=== PATIENT | male | born 1975 | race African-American/Black ===

== ENCOUNTER 2016-07-16 14:58 | Emergency (ER) | payer OTHER ==
[2016-07-16 15:19] VITALS: BP 112/71; PULSE 67; TEMP 100; BMI 32.3
--- NOTE | 2016-07-16 15:46 | PDOC ---
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, worries about influenza Timing/Duration: reports: changing over time, getting worse, gone now Severity: reports: mild, moderate Associated Symptoms: reports: chest pain/soreness, cough, fever/chills, lightheadedness Past History - Travel Traveled outside of the country in the last 30 days: No Close contact w/someone who was outside of country & ill: No - Past Medical History Allergies/Adverse Reactions: Allergies Allergy/AdvReac Type Severity Reaction Status Date / Time No Known Allergies Allergy Verified 07/16/16 15:13 Home Medications: Ambulatory Orders Omeprazole 20 mg PO ASDIR 07/16/16 Oseltamivir Phosphate [Tamiflu -] 75 mg PO BID #10 capsule 07/16/16 GI Disorders: Yes (gastritis) - Immunization History Immunization Up to Date: Yes (no flu ) - Psycho/Social/Smoking Cessation Hx Anxiety: No Suicidal Ideation: No Smoking History: Former smoker Have you smoked in the past 12 months: No Information on smoking cessation initiated: No Hx Alcohol Use: No Drug/Substance Use Hx: No Substance Use Type: None Respiratory Specific PMHX - Complaint Specific PMHX Bronchitis: No Pneumonia: No Review of Systems - Review of Systems Able to Perform ROS?: Yes Is the patient limited Urdu proficient: Yes Constitutional: Yes: Symptoms Reported, See HPI, Chills, Fever, Loss of Appetite , Malaise HEENTM: Yes: Symptoms Reported, See HPI, Nose Congestion, Throat Swelling Respiratory: Yes: Symptoms reported, See HPI, Cough Musculoskeletal: Yes: Symptoms Reported, Muscle Pain Neurological: Yes: Symptoms reported, See HPI, Headache *Physical Exam - Vital Signs Last Vital Signs Temp Pulse Resp BP Pulse Ox 100 F H 67 20 112/71 97 07/16/16 15:13 07/16/16 15:13 07/16/16 15:13 07/16/16 15:13 07/16/16 15:13 - Physical Exam General Appearance: Yes: Nourished, Appropriately Dressed, Apparent Distress, Mild Distress HEENT: positive: KASSANDRA, TMs Normal, Pharyngeal Erythema (no exudate or swelling) , Nasal Congestion, Rhinorrhea, Sinus Tenderness. negative: Pharynx Normal Neck: positive: Supple, Lymphadenopathy (R), Lymphadenopathy (L). negative: Tender Respiratory/Chest: positive: Lungs Clear (but coarse, no wheezing or retractions ), Normal Breath Sounds Gastrointestinal/Abdominal: positive: Normal Bowel Sounds, Soft. 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 Will treat with Tamiflu *DC/Admit/Observation/Transfer Diagnosis at time of Disposition: Influenzal acute upper respiratory infection - Discharge Dispostion Disposition: HOME Condition at time of disposition: Stable Admit: No - Patient Instructions Printed Discharge Instructions: DI for Viral Upper Respiratory Infection -- Adult Additional Instructions: Rest, drink lots of fluids: Teas, water, soups, Pedialyte Saltwater gargles Steamy showers/seem to face break up mucus Old-fashioned treatments help! Avoid contact with others until fevers and cough resolved as this is very contagious Lots of handwashing and good hygiene Continue [id number] medications for symptomatic relief Tylenol or Motrin for fever and pain Take all of Tamiflu as directed: 1 tab every 12 hours for 5 days Followup with private physician in one to 2 days as needed or if worsening Return to emergency department for worsened symptoms, fevers, dehydration Influenza takes between 5 and 7 days for resolution To not participate in any activity, work, or school until fevers and cough are gone for at least one day - Post Discharge Activity Work/School Note: Back to Work
== END 2016-07-16 15:51 | disposition home or self-care (01) ==
LOC: JER 14:58 → JERFT 14:58
DX: J11.1 Influenza due to unidentified influenza virus with other respiratory manifestations (principal)
CPT/HCPCS: 99281-25

== ENCOUNTER 2017-02-26 16:34 | Observation (INO) | payer OTHER ==
[2017-02-26] MEDS ORDERED: ONDANSETRON *ODT* 4 MG TABLET SL ONE (16:57)
--- NOTE | 2017-02-26 16:59 | PDOC ---
Rapid Medical Evaluation Time Seen by Provider: 02/26/17 16:54 Medical Evaluation: Allergies Allergy/AdvReac Type Severity Reaction Status Date / Time No Known Allergies Allergy Verified 07/16/16 15:13 02/26/17 16:54 I have performed a brief in person evaluation of this patient. The patient presents with chief complaint of : abd pain started today with vomiting and diarrhea in triage. no sick contacts at home. Pertinent PE findings: vomiting in triage, I have ordered the following: labs, zofran ODT The patient will proceed to the ER for further evaluation. 02/26/17 16:58
[2017-02-26 17:00] VITALS: BP 151/91; PULSE 56; TEMP 98.7; BMI 32.3
[2017-02-26] MEDS ORDERED: ONDANSETRON 4 MG/2 ML VIAL ONE ×2 (17:59→21:08)
[2017-02-26 18:11] LABS: BASO % 0.8 % (0-2.0); EOS % 2.2 % (0-4.5); HEMOGLOBIN 13.3 GM/dL (11.7-16.9); LYMPH % 30.4 % (8-40); MCH 28.6 pg (25.7-33.7); MCHC 33.1 g/dl (32.0-35.9); MEAN CELL VOLUME 86.4 fl (80-96); MEAN PLT VOLUME 7.7 fl (7.5-11.1); MONO % 4.3 % (3.8-10.2); NEUT % 62.3 % (42.8-82.8); PLATELET COUNT 329 K/MM3 (134-434); RBC 4.63 M/mm3 (4.00-5.60); WHITE BLOOD COUNT 12.4 K/mm3 (4.0-10.0)
[2017-02-26 18:51] LABS: ALK PHOS 59 U/L (45-117); AMYLASE 55 U/L (25-115); ANION GAP 9 (8-16); BILIRUBIN,TOTAL 0.3 mg/dL (0.2-1.0); BLOOD UREA NITROGEN 13 mg/dL (7-18); CHLORIDE 106 mmol/L (98-107); CO2 28 mmol/L (21-32); CREATININE 1.2 mg/dL (0.7-1.3); GLUCOSE,RANDOM 110 mg/dL (74-106); LIPASE 101 U/L (73-393); POTASSIUM 3.7 mmol/L (3.5-5.1); SGOT/AST 30 U/L (15-37); SGPT/ALT 50 U/L (12-78); SODIUM 143 mmol/L (136-145); TOT PROT 8.3 g/dl (6.4-8.2)
--- NOTE | 2017-02-26 19:26 | PDOC ---
History of Present Illness - General Chief Complaint: Pain, Acute Stated Complaint: STOMACH PAIN Time Seen by Provider: 02/26/17 16:54 History Source: Patient Exam Limitations: No Limitations - History of Present Illness Travel History: No Initial Comments: 02/26/17 19:22 Patient is a 42 yo M with no significant PMHx presented today with 6/10, diffuse , intermittent, nonradiating, cramping abdominal pain that started this morning. Patient said he went to a restaurant last night and had rice and beans. He also endorses nausea, vomiting, and non-bloody watery diarrhea. He has been vomiting all day and had more than 5 bowel movements. Nothing alleviates the pain and movement aggravates it. Patient denies recent travel and no sick contacts. He experienced similar events 3 times this year. Patient denies chest pain, headache, sob, and dizziness. Past History - Travel Traveled outside of the country in the last 30 days: No Close contact w/someone who was outside of country & ill: No - Past Medical History Allergies/Adverse Reactions: Allergies Allergy/AdvReac Type Severity Reaction Status Date / Time No Known Allergies Allergy Verified 02/26/17 16:55 Home Medications: Ambulatory Orders Omeprazole 20 mg PO ASDIR 07/16/16 COPD: No GI Disorders: Yes (gastritis) - Immunization History Immunization Up to Date: Yes (no flu ) - Suicide/Smoking/Psychosocial Hx Smoking History: Current every day smoker Have you smoked in the past 12 months: No Number of Cigarettes Smoked Daily: 2 Information on smoking cessation initiated: No Hx Alcohol Use: No Drug/Substance Use Hx: Yes (Marijuana) Substance Use Type: Marijuana Review of Systems - Review of Systems Able to Perform ROS?: Yes Is the patient limited Peruvian proficient: No Constitutional: Yes: Diaphoresis, Fever HEENTM: No: Nose Congestion, Throat Pain Respiratory: No: Cough, Shortness of Breath, Wheezing Cardiac (ROS): No: Chest Pain, Edema, Irregular Heart Rate ABD/GI: Yes: Diarrhea, Nausea, Poor Fluid Intake, Vomiting : No: Dysuria Neurological: No: Headache *Physical Exam - Vital Signs Last Vital Signs Temp Pulse Resp BP Pulse Ox 98.7 F 56 L 16 151/91 100 02/26/17 16:55 02/26/17 16:55 02/26/17 16:55 02/26/17 16:55 02/26/17 16:55 - Physical Exam Comments: 02/26/17 20:21 General: Patient in mild distress, A/o x3 HEENT: anicteric, orophyranx clear, no exudates Neck: supple CV: RRR, no Murmurs appreciated Lung: CTA b/l, no rales rhonchi or wheezing Abd: Soft, ND, normoactive bowel sounds, tenderness to palpation in all quadrants, greater on LUQ. -lawton's, no guarding, no hepatomegaly Ext: no peripheral edema. ED Treatment Course - LABORATORY CBC & Chemistry Diagram: 02/26/17 17:46 02/26/17 17:46 - ADDITIONAL ORDERS Additional order review: Laboratory Results 02/26/17 02/26/17 18:32 17:46 Sodium 143 Potassium 3.7 Chloride 106 Carbon Dioxide 28 Anion Gap 9 BUN 13 Creatinine 1.2 Creat Clearance w eGFR > 60 POC Glucometer 128.96331 Random Glucose 110 H Calcium 9.0 Total Bilirubin 0.3 AST 30 ALT 50 Alkaline Phosphatase 59 Total Protein 8.3 H Albumin 4.0 Total Amylase 55 Lipase 101 02/26/17 02/26/17 18:32 17:46 RBC 4.63 MCV 86.4 MCHC 33.1 RDW 14.0 MPV 7.7 Neutrophils % 62.3 Lymphocytes % 30.4 Monocytes % 4.3 Eosinophils % 2.2 Basophils % 0.8 POC Glucometer 128.93120 - Medications Given in the ED: ED Medications Discontinued Medications Generic Name Dose Route Start Last Admin Trade Name Freq PRN Reason Stop Dose Admin Ondansetron HCl 4 mg 02/26/17 16:57 02/26/17 18:10 Zofran Odt - SL 02/26/17 16:58 Not Given ONCE ONE Medical Decision Making - Medical Decision Making 02/26/17 20:24 #Abdominal pain #Nausea #Vomiting Likely Food poisoning/Gastroenteritis -1 L bolus NS -Zofran for nausea -CBC, CMP -Ofirmev 1000 for pain control -Will continue monitoring. 02/26/17 21:00 Patient still actively vomiting. Says abdominal pain is improving. Zofran ordered. 02/27/17 00:31 Patient still in distress. Abdominal pain has not improved. Still retching. Lactic acid 2.[address] ordered to rule out ischemia. Zofran Morphine 2mg for pain control 02/27/17 02:42 Abdominal pain is improving. Will continue monitoring. 02/27/17 04:54 Patient feels much better now. Pain subsided. Patient ready for discharge. Will need to follow up with a GI doctor in 1 week. 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 Take your medications as directed. If you feel your symptoms are worsening, call your doctor or go to your nearest emergency department. - Post Discharge Activity Forms/Work/School Notes: Back to Work
[2017-02-26] MEDS ORDERED: ACETAMINOPHEN 1000 MG/100 ML VIAL (NON FORMULARY) IVPB ONE (19:32)
[2017-02-26] MEDS ORDERED: SODIUM CHLORIDE 1,000 ML IV STA (19:32)
--- NOTE | 2017-02-26 19:32 | PDOC ---
Attending Attestation - Resident Resident Name: Foster Razo - ED Attending Attestation I have performed the following: I have examined & evaluated the patient, The case was reviewed & discussed with the resident, I agree w/resident's findings & plan, Exceptions are as noted - HPI HPI: 02/26/17 19:25 NVD and ABDOMINAL PAIN COPIOUS DIARRHEA - Physicial Exam PE: 02/26/17 19:32 VSS NAD ABDOMEN SOFT/BENIGN - Medical Decision Making 02/26/17 19:[address] RAZO ASSESSMENT AND PLAN Discharge Disposition - Diagnosis Gastroenteritis, Intractable vomiting - Discharge Dispostion Condition at time of disposition: Unchanged/Unknown Admit: Yes
[2017-02-26] MEDS ORDERED: ACETAMINOPHEN INJECTION 100 ML IVPB ONE (19:36)
[2017-02-26] MEDS ORDERED: ONDANSETRON 4 MG/2 ML VIAL IVPUSH ONE (21:01)
[2017-02-27] MEDS ORDERED: SODIUM CHLORIDE 1,000 ML IV STA (00:25)
[2017-02-27] MEDS ORDERED: SODIUM CHLORIDE 1,000 ML IV SCH (00:30)
[2017-02-27] MEDS ORDERED: ONDANSETRON 4 MG/2 ML VIAL IVPUSH ONE (00:30)
[2017-02-27] MEDS ORDERED: morphine CARPU-JECT 8 MG/1 ML DISP.SYRIN IVPUSH ONE (00:33)
[2017-02-27] MEDS ORDERED: morphine SULFATE 4 MG/ML VIAL ONE (00:42)
[2017-02-27] MEDS ORDERED: ONDANSETRON 4 MG/2 ML VIAL ONE (00:42)
== END 2017-02-27 05:29 | disposition home or self-care (01) ==
LOC: JER 16:34 → JERBED 22:42 → JER 02-27 05:29
PROVIDERS: ADMIT Internal Medicine; ATTEND Internal Medicine
PROC: 3E033GC Introduction of Other Therapeutic Substance into Peripheral Vein, Percutaneous Approach (ICD-10-PCS; principal; 2017-02-26)
PROC: 3E033NZ Introduction of Analgesics, Hypnotics, Sedatives into Peripheral Vein, Percutaneous Approach (ICD-10-PCS; 2017-02-26)
DX: K52.9 Noninfective gastroenteritis and colitis, unspecified (principal)
CPT/HCPCS: 36415; 74177-TC; 80053; 82150; 83605; 83690; 83735; 85025; 96374; 96375; 99283-25; G0378

== ENCOUNTER 2017-04-09 15:44 | Observation (INO) | payer OTHER ==
[2017-04-09 15:49] VITALS: BMI 32.3
--- NOTE | 2017-04-09 15:51 | PDOC ---
Rapid Medical Evaluation Chief Complaint: Pain Time Seen by Provider: 04/09/17 15:47 Medical Evaluation: Allergies Allergy/AdvReac Type Severity Reaction Status Date / Time No Known Allergies Allergy Verified 02/26/17 16:55 04/09/17 15:47 I have performed a brief in-person evaluation of this patient. This patient presents with a chief complaint of: abdominal pain and vomiting since 230pm. States vomiting started after eating chicken at work, pain constant with nausea and vomiting Pertinent physical exam findings: NAD unlabored breathing obese abdomen, +right upper quadrant tenderness I have ordered the following: labs, antiemetic This patient will proceed to the ED for further evaluation
[2017-04-09] MEDS ORDERED: ONDANSETRON 4 MG/2 ML VIAL IVPB ONE ×2 (15:52→16:49)
[2017-04-09 16:12] LABS: BASO % 0.7 % (0-2.0); EOS % 4.1 % (0-4.5); MCH 29.1 pg (25.7-33.7); MCHC 33.1 g/dl (32.0-35.9); MEAN CELL VOLUME 87.8 fl (80-96); MEAN PLT VOLUME 7.6 fl (7.5-11.1); NEUT % 38.5 % (42.8-82.8); PLATELET COUNT 321 K/MM3 (134-434); RDW 14.1 % (11.9-15.9); WHITE BLOOD COUNT 5.9 K/mm3 (4.0-10.0)
[2017-04-09 16:33] LABS: ALBUMIN 3.9 g/dl (3.4-5.0); ANION GAP 7 (8-16); BILIRUBIN,TOTAL 0.2 mg/dL (0.2-1.0); CALCIUM 8.9 mg/dL (8.5-10.1); CO2 29 mmol/L (21-32); CREATININE 1.3 mg/dL (0.7-1.3); GLUCOSE,RANDOM 94 mg/dL (74-106); SGOT/AST 14 U/L (15-37); SGPT/ALT 27 U/L (12-78)
[2017-04-09 16:34] LABS: ALK PHOS 57 U/L (45-117); TOT PROT 7.9 g/dl (6.4-8.2)
[2017-04-09] MEDS ORDERED: ONDANSETRON 4 MG/2 ML VIAL ONE (16:47)
[2017-04-09] MEDS ORDERED: MAG HYDROX/AL HYDROX/SIMETH 30 ML UNIT-DOSE CUP PO ONE (16:48)
[2017-04-09] MEDS ORDERED: KETOROLAC TROMETHAMINE 30 MG/1 ML VIAL IVPUSH ONE (16:48)
[2017-04-09] MEDS ORDERED: SODIUM CHLORIDE 1,000 ML IV STA (16:48)
[2017-04-09] MEDS ORDERED: PANTOPRAZOLE SODIUM 40 MG VIAL IVPUSH ONE (16:58)
[2017-04-09] MEDS ORDERED: KETOROLAC TROMETHAMINE 30 MG/1 ML VIAL ONE (17:03)
[2017-04-09] MEDS ORDERED: PANTOPRAZOLE SODIUM 40 MG/100 ML BAG IVPB ONE (17:03)
[2017-04-09] MEDS ORDERED: FAMOTIDINE IV 20 MG/12 ML VIAL IVPUSH ONE (17:03)
--- NOTE | 2017-04-09 17:03 | PDOC ---
History of Present Illness - History of Present Illness Initial Comments: 04/09/17 17:11 The patient is a 42 year old male, with no significant past medical history, who presents to the emergency department with vomiting and left-sided abdominal pain since 2:30 pm today. Patient admits to several episodes of nausea, vomiting , and diarrhea. He also reports subjective fever, chills and decreased appetite. He denies any recent headache or dizziness. He denies any recent constipation. He denies any recent chest pain or shortness of breath. He denies any recent dysuria, frequency, urgency or hematuria. PCP: Richy Cline <Laura Roblero - Last Filed: 04/09/17 17:11> - General History Source: Patient Exam Limitations: No Limitations <Burt Johnson - Last Filed: 04/14/17 08:08> - General Chief Complaint: Pain Stated Complaint: ABD PAIN, N/V/D Time Seen by Provider: 04/09/17 15:47 Past History <Laura Roblero - Last Filed: 04/09/17 17:11> - Past Medical History COPD: No GI Disorders: Yes (gastritis) - Immunization History Immunization Up to Date: Yes (no flu ) - Suicide/Smoking/Psychosocial Hx Smoking History: Never smoked Have you smoked in the past 12 months: No Number of Cigarettes Smoked Daily: 2 Information on smoking cessation initiated: Yes 'Breaking Loose' booklet given: 04/09/17 Hx Alcohol Use: No Drug/Substance Use Hx: No Substance Use Type: Marijuana <Burt Johnson - Last Filed: 04/14/17 08:08> - Past Medical History Allergies/Adverse Reactions: Allergies Allergy/AdvReac Type Severity Reaction Status Date / Time No Known Allergies Allergy Verified 04/10/17 21:31 Home Medications: Ambulatory Orders Omeprazole 20 mg PO ASDIR 07/16/16 Dicyclomine HCl [Bentyl -] 10 mg PO Q6H #28 capsule 02/27/17 Ondansetron HCl [Zofran] 4 mg PO TID #18 tablet 02/27/17 Ondansetron [Zofran Odt -] 4 mg SL TID #21 od.tablet 04/09/17 Ondansetron [Zofran Odt -] 4 mg SL TID #21 od.tablet 04/09/17 Phenobarb/Hyoscy/Atropine/Scop [ Tablet] 16.2 mg PO TID 3 Days #9 tablet 04/09/17 Phenobarb/Hyoscy/Atropine/Scop [ Tablet] 16.2 mg PO TID 3 Days #9 tablet 04/09/17 Metoclopramide HCl [Reglan -] 10 mg PO TID #30 tablet 04/12/17 Review of Systems - Review of Systems Comments:: 04/09/17 17:12 GENERAL/CONSTITUTIONAL: +fever, +chills. No weakness. HEAD, EYES, EARS, NOSE AND THROAT: No change in vision. No ear pain or discharge. No sore throat. CARDIOVASCULAR: No chest pain or shortness of breath. RESPIRATORY: No cough, wheezing, or hemoptysis. GASTROINTESTINAL: +nausea, +vomiting, +diarrhea. No constipation. GENITOURINARY: No dysuria, frequency, or change in urination. MUSCULOSKELETAL: No joint or muscle swelling or pain. No neck or back pain. SKIN: No rash NEUROLOGIC: No headache, vertigo, loss of consciousness, or change in strength/ sensation. ENDOCRINE: +decreased appetite. No increased thirst. No abnormal weight change. HEMATOLOGIC/LYMPHATIC: No anemia, easy bleeding, or history of blood clots. ALLERGIC/IMMUNOLOGIC: No hives or skin allergy. 04/09/17 17:12 <Laura Roblero - Last Filed: 04/09/17 17:11> *Physical Exam - Vital Signs Last Vital Signs Temp Pulse Resp BP Pulse Ox 98.9 F 60 19 148/93 99 04/09/17 15:47 04/09/17 15:47 04/09/17 15:47 04/09/17 15:47 04/09/17 15:47 - Physical Exam Comments: 04/09/17 17:14 GENERAL: Awake, alert, and fully oriented, in no acute distress HEAD: No signs of trauma EYES: PERRLA, EOMI, sclera anicteric, conjunctiva clear ENT: Auricles normal inspection, hearing grossly normal, nares patent, oropharynx clear without exudates. Dry mucous membranes NECK: Normal ROM, supple, no lymphadenopathy, JVD, or masses LUNGS: Breath sounds equal, clear to auscultation bilaterally. No wheezes, and no crackles HEART: Regular rate and rhythm, normal S1 and S2, no murmurs, rubs or gallops ABDOMEN: Uncomfortable feeling, LUQ, LLQ; tenderness to palpation. Soft, normoactive bowel sounds. No guarding, no rebound. No masses EXTREMITIES: Normal range of motion, no edema. No clubbing or cyanosis. No cords, erythema, or tenderness NEUROLOGICAL: Cranial nerves II through XII grossly intact. Normal speech, normal gait SKIN: Warm, Dry, normal turgor, no rashes or lesions noted. <Laura Roblero - Last Filed: 04/09/17 17:11> - Vital Signs Last Vital Signs Temp Pulse Resp BP Pulse Ox 98.9 F 60 19 148/93 99 04/09/17 15:47 04/09/17 15:47 04/09/17 15:47 04/09/17 15:47 04/09/17 15:47 <uBrt Johnson - Last Filed: 04/14/17 08:08> ED Treatment Course - LABORATORY CBC & Chemistry Diagram: 04/09/17 16:05 04/09/17 16:05 - ADDITIONAL ORDERS Additional order review: Laboratory Results 04/09/17 16:05 Sodium 141 Potassium 3.8 Chloride 105 Carbon Dioxide 29 Anion Gap 7 L BUN 13 Creatinine 1.3 Creat Clearance w eGFR > 60 Random Glucose 94 Calcium 8.9 Total Bilirubin 0.2 D AST 14 L D ALT 27 D Alkaline Phosphatase 57 Total Protein 7.9 Albumin 3.9 Lipase 103 04/09/17 16:05 RBC 4.68 MCV 87.8 MCHC 33.1 RDW 14.1 MPV 7.6 Neutrophils % 38.5 L D Lymphocytes % 49.8 H D Monocytes % 6.9 Eosinophils % 4.1 D Basophils % 0.7 - Medications Given in the ED: ED Medications Discontinued Medications Generic Name Dose Route Start Last Admin Trade Name Freq PRN Reason Stop Dose Admin Al Hydroxide/Mg Hydroxide 30 ml 04/09/17 16:48 04/09/17 16:54 Mylanta Oral Suspension - PO 04/09/17 16:49 30 ml ONCE ONE Administration Ketorolac Tromethamine 30 mg 04/09/17 16:48 04/09/17 16:54 Toradol Injection - IVPUSH 04/09/17 16:49 30 mg ONCE ONE Administration Ondansetron HCl 8 mg 04/09/17 15:52 04/09/17 16:55 Zofran Injection IVPB 04/09/17 15:53 8 mg ONCE ONE Administration Ondansetron HCl 4 mg 04/09/17 16:49 04/09/17 16:54 Zofran Injection IVPB 04/09/17 16:50 4 mg ONCE ONE Administration <Laura Roblero - Last Filed: 04/09/17 17:11> - LABORATORY CBC & Chemistry Diagram: 04/10/17 07:34 04/10/17 07:34 - ADDITIONAL ORDERS Additional order review: Laboratory Results 04/09/17 16:05 Sodium 141 Potassium 3.8 Chloride 105 Carbon Dioxide 29 Anion Gap 7 L BUN 13 Creatinine 1.3 Creat Clearance w eGFR > 60 Random Glucose 94 Calcium 8.9 Total Bilirubin 0.2 D AST 14 L D ALT 27 D Alkaline Phosphatase 57 Total Protein 7.9 Albumin 3.9 Lipase 103 04/09/17 16:05 RBC 4.68 MCV 87.8 MCHC 33.1 RDW 14.1 MPV 7.6 Neutrophils % 38.5 L D Lymphocytes % 49.8 H D Monocytes % 6.9 Eosinophils % 4.1 D Basophils % 0.7 - RADIOLOGY Radiology Studies Ordered: Category Date Time Status ABDOMEN & PELVIS CT WITH CONTR [CT] Stat CT Scan 04/09/17 16:57 Ordered ABDOMEN US -LIMITED [US] Stat Ultrasound 04/09/17 16:59 Ordered - Medications Given in the ED: ED Medications Discontinued Medications Generic Name Dose Route Start Last Admin Trade Name Freq PRN Reason Stop Dose Admin Al Hydroxide/Mg Hydroxide 30 ml 04/09/17 16:48 04/09/17 16:54 Mylanta Oral Suspension - PO 04/09/17 16:49 30 ml ONCE ONE Administration Ketorolac Tromethamine 30 mg 04/09/17 16:48 04/09/17 16:54 Toradol Injection - IVPUSH 04/09/17 16:49 30 mg ONCE ONE Administration Ondansetron HCl 8 mg 04/09/17 15:52 04/09/17 16:55 Zofran Injection IVPB 04/09/17 15:53 8 mg ONCE ONE Administration Ondansetron HCl 4 mg 04/09/17 16:49 04/09/17 16:54 Zofran Injection IVPB 04/09/17 16:50 4 mg ONCE ONE Administration <ElizabethBurt - Last Filed: 04/14/17 08:08> Medical Decision Making - Medical Decision Making 04/09/17 17:00 A portion of this note was documented by scribe services under my direction. I have reviewed the details of the note, within reason, and agree with the documentation with the following case summary and management plan written by me. Patient treated in the ED. Nursing notes are reviewed and incorporated into the medical decision-making. Vital signs reviewed. Peripheral IV access obtained by the nurse, laboratory studies are drawn and sent, reviewed and interpreted by myself. Vital Signs Temp Pulse Resp BP Pulse Ox 98.9 F 60 19 148/93 99 04/09/17 15:47 04/09/17 15:47 04/09/17 15:47 04/09/17 15:47 04/09/17 15:47 42-year-old male with no past medical history presents with left upper, left lower quadrant abdominal pain with several episodes of nausea, vomiting, diarrhea. Reports tactile fevers and chills and decreased by mouth appetite. Patient does have left-sided abdominal pain. Differential includes gastritis, gastroenteritis, colitis, diverticulitis. We'll obtain labs, CAT scan, urinalysis. Treat symptoms and reassess. 04/09/17 18:53 CBC, BMP 04/09/17 16:05 04/09/17 16:05 CMP Sodium 141 mmol/L (136-145) 04/09/17 16:05 Potassium 3.8 mmol/L (3.5-5.1) 04/09/17 16:05 Chloride 105 mmol/L (98-107) 04/09/17 16:05 Carbon Dioxide 29 mmol/L (21-32) 04/09/17 16:05 Anion Gap 7 (8-16) L 04/09/17 16:05 BUN 13 mg/dL (7-18) 04/09/17 16:05 Creatinine 1.3 mg/dL (0.7-1.3) 04/09/17 16:05 Creat Clearance w eGFR > 60 (>60) 04/09/17 16:05 Random Glucose 94 mg/dL (74-106) 04/09/17 16:05 Calcium 8.9 mg/dL (8.5-10.1) 04/09/17 16:05 Total Bilirubin 0.2 mg/dL (0.2-1.0) D 04/09/17 16:05 AST 14 U/L (15-37) L D 04/09/17 16:05 ALT 27 U/L (12-78) D 04/09/17 16:05 Alkaline Phosphatase 57 U/L (45-117) 04/09/17 16:05 Total Protein 7.9 g/dl (6.4-8.2) 04/09/17 16:05 Albumin 3.9 g/dl (3.4-5.0) 04/09/17 16:05 Lipase 103 U/L (73-393) 04/09/17 16:05 Case signed out to oncoming ED attending Dr. Jarrell for further management and disposition. <Burt Johnson - Last Filed: 04/14/17 08:08> *DC/Admit/Observation/Transfer - Attestations Scribe Attestion: 04/09/17 17:16 Documentation prepared by Laura Roblero, acting as medical office rep for Burt Johnson MD. <Laura Roblero - Last Filed: 04/09/17 17:11> <Burt Johnson - Last Filed: 04/14/17 08:08> Diagnosis at time of Disposition: Nausea & vomiting - Discharge Dispostion Disposition: HOME Condition at time of disposition: Stable
[2017-04-09] MEDS ORDERED: FAMOTIDINE 20 MG/50 ML IVPB 20 MG/50 ML MG IVPB ONE (17:04)
[2017-04-09] MEDS ORDERED: METOCLOPRAMIDE HCL INJECTION 10 MG/2 ML VIAL IVPUSH ONE (17:22)
--- NOTE | 2017-04-09 19:27 | PDOC ---
*Physical Exam - Vital Signs Last Vital Signs Temp Pulse Resp BP Pulse Ox 98.9 F 60 19 148/93 99 04/09/17 15:47 04/09/17 15:47 04/09/17 15:47 04/09/17 15:47 04/09/17 15:47 <Jose Chase - Last Filed: 04/09/17 20:30> - Vital Signs Last Vital Signs Temp Pulse Resp BP Pulse Ox 98.9 F 60 19 148/93 99 04/09/17 15:47 04/09/17 15:47 04/09/17 15:47 04/09/17 15:47 04/09/17 15:47 - Physical Exam Gastrointestinal/Abdominal: positive: Normal Bowel Sounds. negative: Guarding, Rebound, Tenderness <Oleg Jarrell - Last Filed: 04/10/17 01:12> ED Treatment Course - LABORATORY CBC & Chemistry Diagram: 04/09/17 16:05 04/09/17 16:05 - ADDITIONAL ORDERS Additional order review: Laboratory Results 04/09/17 16:05 Sodium 141 Potassium 3.8 Chloride 105 Carbon Dioxide 29 Anion Gap 7 L BUN 13 Creatinine 1.3 Creat Clearance w eGFR > 60 Random Glucose 94 Calcium 8.9 Total Bilirubin 0.2 D AST 14 L D ALT 27 D Alkaline Phosphatase 57 Total Protein 7.9 Albumin 3.9 Lipase 103 04/09/17 16:05 RBC 4.68 MCV 87.8 MCHC 33.1 RDW 14.1 MPV 7.6 Neutrophils % 38.5 L D Lymphocytes % 49.8 H D Monocytes % 6.9 Eosinophils % 4.1 D Basophils % 0.7 - Medications Given in the ED: ED Medications Discontinued Medications Generic Name Dose Route Start Last Admin Trade Name Freq PRN Reason Stop Dose Admin Al Hydroxide/Mg Hydroxide 30 ml 04/09/17 16:48 04/09/17 16:54 Mylanta Oral Suspension - PO 04/09/17 16:49 30 ml ONCE ONE Administration Sodium Chloride 1,000 mls @ 1,000 mls/hr 04/09/17 16:48 04/09/17 16:54 Normal Saline - IV 04/09/17 17:47 1,000 mls/hr ASDIR STA Administration Famotidine 20 mg in 12 mls @ 144 mls/hr 04/09/17 17:03 04/09/17 17:24 Pepcid 20 Mg/12 Ml Push IVPUSH 04/09/17 17:07 144 mls/hr ONCE ONE Administration Ketorolac Tromethamine 30 mg 04/09/17 16:48 04/09/17 16:54 Toradol Injection - IVPUSH 04/09/17 16:49 30 mg ONCE ONE Administration Metoclopramide HCl 10 mg 04/09/17 17:22 04/09/17 19:07 Reglan Injection - IVPUSH 04/09/17 17:23 Not Given ONCE ONE Ondansetron HCl 8 mg 04/09/17 15:52 04/09/17 16:55 Zofran Injection IVPB 04/09/17 15:53 8 mg ONCE ONE Administration Ondansetron HCl 4 mg 04/09/17 16:49 04/09/17 16:54 Zofran Injection IVPB 04/09/17 16:50 4 mg ONCE ONE Administration Pantoprazole Sodium 40 mg 04/09/17 16:58 04/09/17 17:24 Protonix Iv IVPUSH 04/09/17 16:59 40 mg ONCE ONE Administration <Jose Chase - Last Filed: 04/09/17 20:30> - LABORATORY CBC & Chemistry Diagram: 04/09/17 16:05 04/09/17 16:05 - ADDITIONAL ORDERS Additional order review: Laboratory Results 04/09/17 16:05 Sodium 141 Potassium 3.8 Chloride 105 Carbon Dioxide 29 Anion Gap 7 L BUN 13 Creatinine 1.3 Creat Clearance w eGFR > 60 Random Glucose 94 Calcium 8.9 Total Bilirubin 0.2 D AST 14 L D ALT 27 D Alkaline Phosphatase 57 Total Protein 7.9 Albumin 3.9 Lipase 103 04/09/17 16:05 RBC 4.68 MCV 87.8 MCHC 33.1 RDW 14.1 MPV 7.6 Neutrophils % 38.5 L D Lymphocytes % 49.8 H D Monocytes % 6.9 Eosinophils % 4.1 D Basophils % 0.7 - Medications Given in the ED: ED Medications Discontinued Medications Generic Name Dose Route Start Last Admin Trade Name Freq PRN Reason Stop Dose Admin Al Hydroxide/Mg Hydroxide 30 ml 04/09/17 16:48 04/09/17 16:54 Mylanta Oral Suspension - PO 04/09/17 16:49 30 ml ONCE ONE Administration Sodium Chloride 1,000 mls @ 1,000 mls/hr 04/09/17 16:48 04/09/17 16:54 Normal Saline - IV 04/09/17 17:47 1,000 mls/hr ASDIR STA Administration Famotidine 20 mg in 12 mls @ 144 mls/hr 04/09/17 17:03 04/09/17 17:24 Pepcid 20 Mg/12 Ml Push IVPUSH 04/09/17 17:07 144 mls/hr ONCE ONE Administration Ketorolac Tromethamine 30 mg 04/09/17 16:48 04/09/17 16:54 Toradol Injection - IVPUSH 04/09/17 16:49 30 mg ONCE ONE Administration Metoclopramide HCl 10 mg 04/09/17 17:22 04/09/17 19:07 Reglan Injection - IVPUSH 04/09/17 17:23 Not Given ONCE ONE Ondansetron HCl 8 mg 04/09/17 15:52 04/09/17 16:55 Zofran Injection IVPB 04/09/17 15:53 8 mg ONCE ONE Administration Ondansetron HCl 4 mg 04/09/17 16:49 04/09/17 16:54 Zofran Injection IVPB 04/09/17 16:50 4 mg ONCE ONE Administration Pantoprazole Sodium 40 mg 04/09/17 16:58 04/09/17 17:24 Protonix Iv IVPUSH 04/09/17 16:59 40 mg ONCE ONE Administration <Oleg Jarrell - Last Filed: 04/10/17 01:12> Medical Decision Making - Medical Decision Making 04/09/17 20:04 Duran Neil Name: [facility] DEPARTMENT OF RADIOLOGY Phys: Burt Johnson MD : 1975 Age: 42 Sex: M [facility] Acct: [id number] Loc: [address] Exam Date: 04/09/17 Status: [place] [id number] Unit Number: [id number] EXAM#: TYPE/EXAM: RESULT: [id number] US/ABDOMEN US -LIMITED Exam: Right upper quadrant sonogram. Indication: Emesis. Right upper quadrant pain. Technique: Grayscale and color Doppler sonogram of the right upper quadrant of the abdomen was performed by the technologist. Images are submitted for review. Comparison: Prior sonogram. Correlation made to the 02/27/2017 CT abdomen/ pelvis. Findings: The liver is normal in size, measuring 14.1 cm in length, with normal hepatic echotexture. No discrete hepatic mass lesion identified. The gallbladder is not hydropic. There is mild gallbladder wall thickening measuring up to 4 mm. No evidence of cholelithiasis or pericholecystic fluid. There is no evidence of intrahepatic ductal dilatation. The proximal common bile duct measures 5 mm in diameter. The visualized portions of the pancreatic head and body are grossly unremarkable. The pancreatic tail is obscured by bowel gas and cannot be assessed. The right kidney is normal in size measuring 10.5 cm in length with normal cortical echotexture and no hydronephrosis. There is an exophytic cyst in the lower pole of the right kidney measuring 1.2 x 1.3 x 1.5 cm. No free fluid identified in the right upper quadrant of the abdomen. The portal vein is patent, where imaged, with hepatopedal flow. The the upper abdominal aorta and upper IVC are unremarkable, where imaged. Impression: 1. No evidence of cholelithiasis or acute cholecystitis. Nonspecific mild gallbladder wall thickening. 2. Mildly prominent common bile duct measuring 5 mm in diameter. No evidence of intrahepatic ductal dilatation. Please correlate clinically with serum biliary markers. 3. A 1.5 x 1.3 cm right renal cyst. No right hydronephrosis. Reported By: Geovanni Dotson DO 04/09/171928 Burt Johnson Technologist: Judd Morejon Transcribed Date/Time: 04/09/171928 Cs Associate: Geovanni Dotson DO Printed Date/Time: By: Signed by: Geovanni Dotson Signed on: 09-Apr-2017 19:29 Duran Rashaad Name: SEGUN[facility] ARVI[facility]U DEPARTMENT OF RADIOLOGY Phys: Burt Johnson MD : 1975 Age: 42 Sex: M [facility] Acct: [id number] Loc: [address] Exam Date: 04/09/17 Status: [place] [id number] Unit Number: [id number] EXAM#: TYPE/EXAM: RESULT: [id number] CT/ABDOMEN PELVIS CT WITH CONTR Exam: CT abdomen and pelvis with IV contrast. Indication: Left upper quadrant and left lower quadrant pain. Nausea. Emesis. Diarrhea. Technique: Contiguous axial CT images of the abdomen and pelvis were obtained without oral contrast , following intravenous administration of 100 mL of Omnipaque 350 contrast. Coronal and sagittal reformations obtained. Findings: The visualized lung bases are clear. The heart is not enlarged. The liver is normal in size and contour. The gallbladder is not pathologically distended. There is nonspecific gallbladder wall thickening. Is no evidence of intrahepatic or extrahepatic biliary ductal dilatation. There is mild nonspecific periportal edema within the liver. The pancreas is unremarkable. The spleen is normal in size, with no focal lesions. There is no mass in the adrenal glands. The kidneys are normal in size with symmetric enhancement. There is no hydroureteronephrosis. There is an approximately 1.2 x 1.1 cm exophytic cyst in the midpole of the right kidney. Normal caliber abdominal aorta. No pathologically enlarged retroperitoneal lymph nodes by size criteria. Evaluation of the bowel is somewhat limited due to lack of enteric contrast. Nearly the entire colon is collapsed, which results in suboptimal evaluation of the bowel wall. There are no dilated loops of large or small bowel to suggest obstruction. There is a normal- appearing appendix in the right lower quadrant. There is no free intraperitoneal air, ascites or drainable collection within the abdomen or pelvis. There is a tiny umbilical hernia containing fat and portions of the bowel wall in a mildly protruding loop of small bowel. The urinary bladder is physiologically collapsed, precluding evaluation. The prostate gland is not enlarged. No acute fracture in the visualized osseous structures. Degenerative changes are noted in the lower lumbar spine Impression: 1. No dilated loops of bowel to suggest obstruction. Normal appendix. No evidence of diverticulitis. The entire colon is collapsed, which limits evaluation of the colon wall. 2. Nonspecific gallbladder wall thickening, similar to the prior CT. No CT evidence of acute cholecystitis or biliary ductal dilatation. 3. Nonspecific periportal edema, similar to the prior CT.. Reported By: Geovanni Dotson DO 04/09/171942 Burt Johnson Technologist: Obinna oDe Transcribed Date/Time: 04/09/171942 Cs Associate: Geovanni Dotson DO Printed Date/Time: By: Signed by: Geovanni Dotson Signed on: 09-Apr-2017 19:44 <Jose Chase - Last Filed: 04/09/17 20:30> - Medical Decision Making 04/09/17 20:08 Left-sided abdominal discomfort and nausea vomiting diarrhea seen in the emergency department received antiemetics fluids pain meds. CT abdomen and pelvis shows no acute pathology ultrasound of the right upper quadrant demonstrates no acute pathology Reevaluation 8 PM patient tolerating fluids by mouth still with some mild left upper quadrant discomfort. Given no fever no white count no acute findings on imaging history and examination most consistent with either viral or foodborne illness 04/09/17 21:12 Reevaluation 9:15 PM despite previously tolerate fluids patient vomiting again. We'll observe overnight for antiemetics and further management. 04/10/17 01:12 <Oleg Jarrell - Last Filed: 04/10/17 01:12> *DC/Admit/Observation/Transfer - Attestations Scribe Attestion: 04/09/17 20:32 Documentation prepared by Jose Chase, acting as certified medical biller for Oleg Jarrell MD, MD/. <Jose Chase - Last Filed: 04/09/17 20:30> - Discharge Dispostion Admit: Yes <Oleg Jarrell - Last Filed: 04/10/17 01:12> Diagnosis at time of Disposition: Nausea & vomiting Qualifiers: Vomiting type: unspecified Vomiting Intractability: unspecified Qualified Code( s): R11.2 - Nausea with vomiting, unspecified
[2017-04-09] MEDS ORDERED: METOCLOPRAMIDE HCL INJECTION 10 MG/2 ML VIAL IVPB ONE (21:12)
--- NOTE | 2017-04-09 21:19 | PN ---
Teaching Attending Note Name of Resident: Arun Maravilla ATTENDING PHYSICIAN STATEMENT I saw and evaluated the patient. I reviewed the resident's note and discussed the case with the resident. I agree with the resident's findings and plan as documented. SUBJECTIVE: 42 M with no pmhx who presents with continous nausea and vomiting. Notes left sided abdominal pain. No chest pain or pressure. No shortness of breath. Subjective fevers at home, with no measured temperature. OBJECTIVE: Physical: VS: Vital Signs Period Temp Pulse Resp BP Sys/Babcock Pulse Ox Last 24 Hr 98.9 F 60-61 18-19 138-148/53-93 98-100 GEN: NAD, resting in bed, able to speak full sentences HEENT: NCAT, PERRL, throat without erythema or exudates CARD: RRR S1, S2 RESP: CTAB ABD: BSx4, NTD to palpation EXT: - C/C/E CBCD WBC 5.9 K/mm3 (4.0-10.0) D 04/09/17 16:05 RBC 4.68 M/mm3 (4.00-5.60) 04/09/17 16:05 Hgb 13.6 GM/dL (11.7-16.9) 04/09/17 16:05 Hct 41.0 % (35.4-49) 04/09/17 16:05 MCV 87.8 fl (80-96) 04/09/17 16:05 MCHC 33.1 g/dl (32.0-35.9) 04/09/17 16:05 RDW 14.1 % (11.9-15.9) 04/09/17 16:05 Plt Count 321 K/MM3 (134-434) 04/09/17 16:05 MPV 7.6 fl (7.5-11.1) 04/09/17 16:05 CMP Sodium 141 mmol/L (136-145) 04/09/17 16:05 Potassium 3.8 mmol/L (3.5-5.1) 04/09/17 16:05 Chloride 105 mmol/L (98-107) 04/09/17 16:05 Carbon Dioxide 29 mmol/L (21-32) 04/09/17 16:05 Anion Gap 7 (8-16) L 04/09/17 16:05 BUN 13 mg/dL (7-18) 04/09/17 16:05 Creatinine 1.3 mg/dL (0.7-1.3) 04/09/17 16:05 Creat Clearance w eGFR > 60 (>60) 04/09/17 16:05 Calcium 8.9 mg/dL (8.5-10.1) 04/09/17 16:05 Total Bilirubin 0.2 mg/dL (0.2-1.0) D 04/09/17 16:05 AST 14 U/L (15-37) L D 04/09/17 16:05 ALT 27 U/L (12-78) D 04/09/17 16:05 Alkaline Phosphatase 57 U/L (45-117) 04/09/17 16:05 Total Protein 7.9 g/dl (6.4-8.2) 04/09/17 16:05 Albumin 3.9 g/dl (3.4-5.0) 04/09/17 16:05 EXAM#: TYPE/EXAM: RESULT: [id number] US/ABDOMEN US -LIMITED Exam: Right upper quadrant sonogram. Indication: Emesis. Right upper quadrant pain. Technique: Grayscale and color Doppler sonogram of the right upper quadrant of the abdomen was performed by the technologist. Images are submitted for review. Comparison: Prior sonogram. Correlation made to the 02/27/2017 CT abdomen/ pelvis. Findings: The liver is normal in size, measuring 14.1 cm in length, with normal hepatic echotexture. No discrete hepatic mass lesion identified. The gallbladder is not hydropic. There is mild gallbladder wall thickening measuring up to 4 mm. No evidence of cholelithiasis or pericholecystic fluid. There is no evidence of intrahepatic ductal dilatation. The proximal common bile duct measures 5 mm in diameter. The visualized portions of the pancreatic head and body are grossly unremarkable. The pancreatic tail is obscured by bowel gas and cannot be assessed. The right kidney is normal in size measuring 10.5 cm in length with normal cortical echotexture and no hydronephrosis. There is an exophytic cyst in the lower pole of the right kidney measuring 1.2 x 1.3 x 1.5 cm. No free fluid identified in the right upper quadrant of the abdomen. The portal vein is patent, where imaged, with hepatopedal flow. The the upper abdominal aorta and upper IVC are unremarkable, where imaged. Impression: 1. No evidence of cholelithiasis or acute cholecystitis. Nonspecific mild gallbladder wall thickening. 2. Mildly prominent common bile duct measuring 5 mm in diameter. No evidence of intrahepatic ductal dilatation. Please correlate clinically with serum biliary markers. 3. A 1.5 x 1.3 cm right renal cyst. No right hydronephrosis. CT ABD/PELVIS: Impression: 1. No dilated loops of bowel to suggest obstruction. Normal appendix. No evidence of diverticulitis. The entire colon is collapsed, which limits evaluation of the colon wall. 2. Nonspecific gallbladder wall thickening, similar to the prior CT. No CT evidence of acute cholecystitis or biliary ductal dilatation. 3. Nonspecific periportal edema, similar to the prior CT.. ASSESSMENT AND PLAN: 42 M with no pmhs who presents with continous nausea, vomiting, diarrhea 1.) Acute Gastroenteritis - Unable to tolerate PO - IVF - Zofran or compazine/Reglan- CHK Ekg - Less likley C.Diff, can chk stool - Clear liquids to BRAT diet - Stool Cx 2.) Dvt Ppx - Ambulate/SCDs Place in Obs
[2017-04-09] MEDS ORDERED: METOCLOPRAMIDE HCL INJECTION 10 MG/2 ML VIAL ONE (21:25)
[2017-04-09] MEDS ORDERED: FAMOTIDINE IV 20 MG/12 ML VIAL IVPUSH SCH (22:00)
[2017-04-09] MEDS ORDERED: PROCHLORPERAZINE INJECTION 10 MG/2 ML VIAL IVPB ONE (22:10)
[2017-04-09] MEDS ORDERED: SODIUM CHLORIDE 1,000 ML IV SCH (22:15)
--- NOTE | 2017-04-09 22:38 | HP ---
CHIEF COMPLAINT: Diarrhea x7, persistent vomiting PCP: Dr. Richy Cline HISTORY OF PRESENT ILLNESS: 42 yo man with no significant pmh, who presents with persistent N/V and diarrhea that began at 2:30 PM today. Pt states that he was in his usual state of health this morning with no complaints or GI symptoms, smoked marijuana around 6AM in the morning and had no change in his normal diet. He does endorses eating some chicken, which may have been poorly cooked. He states that in the early afternoon, he began have persistent watery diarrhea w/ no hematochezia or melena x7, as well as continuous non-bloody, non-bilious vomiting. He also endorses mild subjective fevers/chills and decreased PO intake /appetite. He also endorses mild non-radiating LLQ, worsened by inspiration. He denies any NIÑO/dizziness, CP, palpitations, cough, rashes, reflux, constipation, dysuria, hematuria, LE edema. He denies any recent travel or sick contacts. He lives in a "family home" and no one living with him has been sick with a GI illness. Pt has no hx of GI conditions, however does endorse one similar episode 2-3 months ago, for which he was never fully evaluated and resolved on its own. He endorses a hx of cannabis use, but did not give a timeline. ER course was notable for: (1) Temp 98.9, WBC 5.9 (2) Lipase 103, normal LFTS (3) Unremarkable abdominal CT Recent Travel: Denies PAST MEDICAL HISTORY: Prior episode of vomiting/diarrhea 2-3 months ago Cannabis abuse PAST SURGICAL HISTORY: None Social History: Smoking: No cigs Alcohol: Social drinker, 2-3 drinks a weeks of ([employer]?) Drugs: +Cannabis Pt works at a [employer] Family History: Allergies No Known Allergies Allergy (Verified 04/09/17 15:49) HOME MEDICATIONS: Home Medications Medication Instructions Recorded Omeprazole 20 mg PO ASDIR 07/16/16 Dicyclomine HCl [Bentyl -] 10 mg PO Q6H #28 capsule 02/27/17 Ondansetron HCl [Zofran] 4 mg PO TID #18 tablet 02/27/17 Ondansetron [Zofran Odt -] 4 mg SL TID #21 od.tablet 04/09/17 Ondansetron [Zofran Odt -] 4 mg SL TID #21 od.tablet 04/09/17 Phenobarb/Hyoscy/Atropine/Scop 16.2 mg PO TID 3 Days #9 tablet 04/09/17 [ Tablet] Phenobarb/Hyoscy/Atropine/Scop 16.2 mg PO TID 3 Days #9 tablet 04/09/17 [ Tablet] REVIEW OF SYSTEMS CONSTITUTIONAL: fever, chills, Absent: diaphoresis, generalized weakness, malaise, loss of appetite, weight change HEENT: Absent: rhinorrhea, nasal congestion, throat pain, throat swelling, difficulty swallowing, mouth swelling, ear pain, eye pain, visual changes CARDIOVASCULAR: Absent: chest pain, syncope, palpitations, irregular heart rate, lightheadedness , peripheral edema RESPIRATORY: Absent: cough, shortness of breath, dyspnea with exertion, orthopnea, wheezing, stridor, hemoptysis GASTROINTESTINAL: abdominal pain, nausea, vomiting, diarrhea, Absent: abdominal distension, constipation, melena, hematochezia GENITOURINARY: Absent: dysuria, frequency, urgency, hesitancy, hematuria, flank pain, genital pain MUSCULOSKELETAL: Absent: myalgia, arthralgia, joint swelling, back pain, neck pain SKIN: Absent: rash, itching, pallor ENDOCRINE: Absent: unexplained weight gain, unexplained weight loss, heat intolerance, cold intolerance NEUROLOGIC: Absent: headache, focal weakness or paresthesias, dizziness, unsteady gait, seizure, mental status changes, bladder or bowel incontinence . PHYSICAL EXAMINATION Vital Signs - 24 hr 04/09/17 04/09/17 04/09/17 15:47 19:20 21:05 Temperature 98.9 F Pulse Rate 60 Pulse Rate [ 61 Left] Respiratory 19 18 Rate Blood Pressure 148/93 Blood Pressure 138/53 [Right Arm] O2 Sat by Pulse 99 98 100 Oximetry (%) GENERAL: Awake, alert, and fully oriented, mild distress/discomfort HEAD: Normal with no signs of trauma. EYES: Pupils equal, round and reactive to light, extraocular movements intact, sclera anicteric, conjunctiva clear. No lid lag. EARS, NOSE, THROAT: Ears normal, nares patent, oropharynx clear without exudates. Moist mucous membranes. NECK: Normal range of motion, supple without lymphadenopathy, JVD, or masses. LUNGS: Breath sounds equal, clear to auscultation bilaterally. No wheezes, and no crackles. No accessory muscle use. HEART: Regular rate and rhythm, normal S1 and S2 without murmur, rub or gallop. ABDOMEN: Tender to deep palpation in LLQ, voluntary guarding. Slightly dsitended. Soft, hypoactive bowel sounds, no rebound, no masses. No hepatomegaly or splenomegaly. MUSCULOSKELETAL: Normal range of motion at all joints. No bony deformities or tenderness. No CVA tenderness. UPPER EXTREMITIES: 2+ pulses, warm, well-perfused. No cyanosis. No clubbing. No peripheral edema. LOWER EXTREMITIES: 2+ pulses, warm, well-perfused. No calf tenderness. No peripheral edema. NEUROLOGICAL: Cranial nerves II-XII intact. Normal speech. Normal gait. PSYCHIATRIC: Cooperative. Good eye contact. Appropriate mood and affect. SKIN: Warm, dry, normal turgor, no rashes or lesions noted, normal capillary refill. Laboratory Results - last 24 hr CBC, BMP 04/09/17 16:05 04/09/17 16:05 04/09/17 04/09/17 16:05 16:05 WBC 5.9 D RBC 4.68 Hgb 13.6 Hct 41.0 MCV 87.8 MCH 29.1 MCHC 33.1 RDW 14.1 Plt Count 321 MPV 7.6 Neutrophils % 38.5 L D Lymphocytes % 49.8 H D Monocytes % 6.9 Eosinophils % 4.1 D Basophils % 0.7 Sodium 141 Potassium 3.8 Chloride 105 Carbon Dioxide 29 Anion Gap 7 L BUN 13 Creatinine 1.3 Creat Clearance w eGFR > 60 Random Glucose 94 Calcium 8.9 Total Bilirubin 0.2 D AST 14 L D ALT 27 D Alkaline Phosphatase 57 Total Protein 7.9 Albumin 3.9 Lipase 103 No micro Abdominal US 04/09 - Prominent CBD (5mm), renal cyst. Otherwise unremarkable Abdominal CT 04/09 - Impression: 1. No dilated loops of bowel to suggest obstruction. Normal appendix. No evidence of diverticulitis. The entire colon is collapsed, which limits evaluation of the colon wall. 2. Nonspecific gallbladder wall thickening, similar to the prior CT. No CT evidence of acute cholecystitis or biliary ductal dilatation. 3. Nonspecific periportal edema, similar to the prior CT.. ASSESSMENT/PLAN: 42 yo man with no significant pmh, who presents with persistent N/V and diarrhea that began at 2:30 PM today in the setting of smoking marijuana in the morning and ingesting possibly poorly cooked chicken. #Acute gastroenteritis vs. cyclic vomiting syndrome vs. food poisoning - IVFs - Zofran/compazine for N/V - F/u EKG for QTc prolongation - Clear liquid diet - Stool culture - C diff antigen - O+P - Smoking cessation - Trend fever, cbc #PPx - OOB, SCDs FEN: F: NS 75cc E: No abnormalities N: Clear liquids, advance as tolerated Plan discussed with attending, Dr. Sasha Maravilla, PGY1 Visit type - Emergency Visit Emergency Visit: Yes Care time: The patient presented to the Emergency Department on the above date and was hospitalized for further evaluation of their emergent condition. - New Patient This patient is new to me today: Yes Date on this admission: 04/09/17 - Critical Care Critical Care patient: No
[2017-04-09] MEDS ORDERED: PROCHLORPERAZINE INJECTION 10 MG/2 ML VIAL ONE (22:47)
[2017-04-10 08:33] LABS: MCH 28.8 pg (25.7-33.7); MCHC 33.2 g/dl (32.0-35.9); MEAN CELL VOLUME 86.5 fl (80-96); MEAN PLT VOLUME 7.4 fl (7.5-11.1); PLATELET COUNT 277 K/MM3 (134-434); RDW 13.9 % (11.9-15.9); WHITE BLOOD COUNT 9.5 K/mm3 (4.0-10.0)
--- NOTE | 2017-04-10 10:00 | CON.GI ---
Consult Consult Specialty:: GI - History of Present Illness History of Present Illness: A healthy 42 yom with acute onset of nausea, vomiting, diarrhea and dyspepsia. < 24 hrs at this point. Feeling better this am. No appetite, however tolerating clears. Denies dysphagia, odynophagia, GERD-like symptoms, abdominal pain, jaundice, fever, chills, ill contacts, traveling, or eating out recently. Had similar event 3 months ago. No chronic GI issues personally, or in family. Works at [employer]. Smokes marijuana. - History Source History Provided By: Patient - Alcohol/Substance Use Hx Alcohol Use: No - Smoking History Smoking history: Current every day smoker Have you smoked in the past 12 months: Yes Aproximately how many cigarettes per day: 5 Home Medications - Allergies Allergies/Adverse Reactions: Allergies Allergy/AdvReac Type Severity Reaction Status Date / Time No Known Allergies Allergy Verified 04/09/17 15:49 - Home Medications Home Medications: Ambulatory Orders Omeprazole 20 mg PO ASDIR 07/16/16 Dicyclomine HCl [Bentyl -] 10 mg PO Q6H #28 capsule 02/27/17 Ondansetron HCl [Zofran] 4 mg PO TID #18 tablet 02/27/17 Ondansetron [Zofran Odt -] 4 mg SL TID #21 od.tablet 04/09/17 Ondansetron [Zofran Odt -] 4 mg SL TID #21 od.tablet 04/09/17 Phenobarb/Hyoscy/Atropine/Scop [ Tablet] 16.2 mg PO TID 3 Days #9 tablet 04/09/17 Phenobarb/Hyoscy/Atropine/Scop [ Tablet] 16.2 mg PO TID 3 Days #9 tablet 04/09/17 Family Disease History - Family Disease History Family History: Unremarkable Review of Systems Findings/Remarks: as per H&P Physical Exam-GI Vital Signs: Vital Signs Temperature 99.6 F 04/10/17 05:37 Pulse Rate 79 04/10/17 05:37 Respiratory Rate 79 H 04/10/17 05:37 Blood Pressure 139/79 04/10/17 05:37 O2 Sat by Pulse Oximetry (%) 98 04/10/17 02:09 Constitutional: Yes: Well Nourished, No Distress, Calm Eyes: Yes: Conjunctiva Clear HENT: Yes: Atraumatic Neck: Yes: Supple Cardiovascular: Yes: Regular Rate and Rhythm Respiratory: Yes: Regular Gastrointestinal Inspection: No: Ascites, Distention ...Auscultate: Yes: Normoactive Bowel Sounds ...Palpate: Yes: Soft. No: Mass, Tenderness Neurological: Yes: Alert, Oriented Labs: CBC, BMP 04/10/17 07:34 Laboratory Results - last 24 hr 04/09/17 04/09/17 04/10/17 16:05 16:05 07:34 WBC 5.9 D 9.5 D RBC 4.68 4.37 Hgb 13.6 12.6 Hct 41.0 37.8 MCV 87.8 86.5 MCH 29.1 28.8 MCHC 33.1 33.2 RDW 14.1 13.9 Plt Count 321 277 MPV 7.6 7.4 L Neutrophils % 38.5 L D Lymphocytes % 49.8 H D Monocytes % 6.9 Eosinophils % 4.1 D Basophils % 0.7 Sodium 141 Potassium 3.8 Chloride 105 Carbon Dioxide 29 Anion Gap 7 L BUN 13 Creatinine 1.3 Creat Clearance w eGFR > 60 Random Glucose 94 Calcium 8.9 Total Bilirubin 0.2 D AST 14 L D ALT 27 D Alkaline Phosphatase 57 Total Protein 7.9 Albumin 3.9 Lipase 103 Imaging - Results Cat Scan: Report Reviewed Ultrasound: Report Reviewed Problem List - Problems (1) Gastroenteritis Code(s): K52.9 - NONINFECTIVE GASTROENTERITIS AND COLITIS, UNSPECIFIED Assessment/Plan Appears to be ether viral, or food-related gastroenteritis. Doubt this is cyclic, or cannabis-related vomiting event Supportive care. PO hydration, Fat-free, lactose-free diet antidiarrhears, NSIDs and entiemetics PRN Follow with GI in 1 week, or sooner if worsening discussed with the patient
[2017-04-10 10:34] VITALS: BP 142/71; PULSE 72; TEMP 98.5
[2017-04-10] MEDS ORDERED: ONDANSETRON *ODT* 4 MG TABLET SL ONE ×2 (11:30→15:00)
[2017-04-10 13:30] LABS: ALBUMIN 3.7 g/dl (3.4-5.0); ANION GAP 13 (8-16); CALCIUM 8.8 mg/dL (8.5-10.1); CO2 24 mmol/L (21-32); GLUCOSE,RANDOM 101 mg/dL (74-106)
[2017-04-10 13:35] LABS: ALK PHOS 45 U/L (45-117); BILIRUBIN,TOTAL 0.5 mg/dL (0.2-1.0); SGOT/AST 26 U/L (15-37); SGPT/ALT 43 U/L (12-78); TOT PROT 7.2 g/dl (6.4-8.2)
--- NOTE | 2017-04-10 13:39 | DS ---
Physical Exam: SUBJECTIVE: Patient seen and examined. He denies any further abdominal pain, nausea or vomiting. Tolerated full liquid diet this morning and regular diet this afternoon. OBJECTIVE: GI follow up outpatient Vital Signs Period Temp Pulse Resp BP Sys/Babcock Pulse Ox Last 24 Hr 98.5 F-99.6 F 60-79 18-79 134-148/53-93 98-100 PHYSICAL EXAM GENERAL: The patient is awake, alert, and fully oriented, in no acute distress. HEAD: Normal with no signs of trauma. EYES: PERRL, extraocular movements intact, sclera anicteric, conjunctiva clear. ENT: Ears normal, nares patent, oropharynx clear without exudates, moist mucous membranes. NECK: Trachea midline, full range of motion, supple. LUNGS: Breath sounds equal, clear to auscultation bilaterally, no wheezes, no crackles, no accessory muscle use. HEART: Regular rate and rhythm, S1, S2 without murmur, rub or gallop. ABDOMEN: Soft, nontender, nondistended, normoactive bowel sounds, no guarding, no rebound, no hepatosplenomegaly, no masses. EXTREMITIES: 2+ pulses, warm, well-perfused, no edema. NEUROLOGICAL: Cranial nerves II through XII grossly intact. Normal speech, gait not observed. PSYCH: Normal mood, normal affect. SKIN: Warm, dry, normal turgor, no rashes or lesions noted. LABS Laboratory Results - last 24 hr 04/09/17 04/09/17 04/10/17 16:05 16:05 07:34 WBC 5.9 D 9.5 D RBC 4.68 4.37 Hgb 13.6 12.6 Hct 41.0 37.8 MCV 87.8 86.5 MCH 29.1 28.8 MCHC 33.1 33.2 RDW 14.1 13.9 Plt Count 321 277 MPV 7.6 7.4 L Neutrophils % 38.5 L D Lymphocytes % 49.8 H D Monocytes % 6.9 Eosinophils % 4.1 D Basophils % 0.7 Sodium 141 Potassium 3.8 Chloride 105 Carbon Dioxide 29 Anion Gap 7 L BUN 13 Creatinine 1.3 Creat Clearance w eGFR > 60 Random Glucose 94 Calcium 8.9 Total Bilirubin 0.2 D AST 14 L D ALT 27 D Alkaline Phosphatase 57 Total Protein 7.9 Albumin 3.9 Lipase 103 04/10/17 07:34 WBC RBC Hgb Hct MCV MCH MCHC RDW Plt Count MPV Neutrophils % Lymphocytes % Monocytes % Eosinophils % Basophils % Sodium 142 Potassium 3.7 Chloride 105 Carbon Dioxide 24 Anion Gap 13 BUN 8 D Creatinine 1.0 D Creat Clearance w eGFR > 60 Random Glucose 101 Calcium 8.8 Total Bilirubin 0.5 D AST 26 D ALT 43 D Alkaline Phosphatase 45 D Total Protein 7.2 Albumin 3.7 Lipase HOSPITAL COURSE: Date of Admission:04/09/17 Date of Discharge: 04/10/17 ASSESSMENT/PLAN: Patient is a 42 year old man with no significant past medical history. He presents to the ER on 04/09 with [age]is42 yo man with no significant p who presents with persistent nausea, vomiting and diarrhea that began at 2:30 in the setting of smoking marijuana and possibly ingesting poorly cooked chicken. Imaging: Abdominal CT 04/09 No dilated loops, no bowel obstruction, normal appendix, no diverticulitis, colon collapsed, non specific gallbladder wall thickening, no CT evidence of cholecystitis or bili ductal dilatation, non specific periportal edema, GI: Acute gastroenteritis vs. food poisoning, resolved No further nausea/vomiting/diarrhea Given IV hydration Has tolerated regular diet, in no acute distress Labs unremarkable Follow up with Dr. Singh outpatient if symptoms worsen or persist Zofran prn ordered to pt pharmacy PO hydration encouraged Disposition. discharge home, OBS Minutes to complete discharge: 60 Discharge Summary Reason For Visit: INTRACTABLE VOMITING Current Active Problems Nausea & vomiting (Acute) Condition: Stable - Instructions Diet, Activity, Other Instructions: Mr. Huggins: Drink plenty of fluids. Zofran as prescribed. as prescribed. If no vomiting by tomorrow morning okay to proceed to a bland diet such as bananas rice crackers toast. Return to the emergency department immediately for any severe worsening abdominal pain fever persistent vomiting or for any concerns. Follow up with DR. Singh in 1 week, or sooner if worsening Referrals: Werner Singh MD [Staff Physician] - 1 Week Richy Cline [Primary Care Provider] - Disposition: HOME - Home Medications Comprehensive Discharge Medication List: Ambulatory Orders Omeprazole 20 mg PO ASDIR 07/16/16 Dicyclomine HCl [Bentyl -] 10 mg PO Q6H #28 capsule 02/27/17 Ondansetron HCl [Zofran] 4 mg PO TID #18 tablet 02/27/17 Ondansetron [Zofran Odt -] 4 mg SL TID #21 od.tablet 04/09/17 Ondansetron [Zofran Odt -] 4 mg SL TID #21 od.tablet 04/09/17 Phenobarb/Hyoscy/Atropine/Scop [ Tablet] 16.2 mg PO TID 3 Days #9 tablet 04/09/17 Phenobarb/Hyoscy/Atropine/Scop [ Tablet] 16.2 mg PO TID 3 Days #9 tablet 04/09/17 This patient is new to me today: Yes Date on this admission: 04/10/17 Emergency Visit: Yes ED Registration Date: 04/09/17 Care time: The patient presented to the Emergency Department on the above date and was hospitalized for further evaluation of their emergent condition. Critical Care patient: No - Discharge Referral Referred to [facility] No
--- NOTE | 2017-04-10 21:06 | EKG ---
Test Reason : Blood Pressure : / mmHG Vent. Rate : 072 BPM Atrial Rate : 072 BPM P-R Int : 146 ms QRS Dur : 106 ms QT Int : 408 ms P-R-T Axes : 069 061 059 degrees QTc Int : 446 ms SINUS RHYTHM WITH MARKED SINUS ARRHYTHMIA OTHERWISE NORMAL ECG NO PREVIOUS ECGS AVAILABLE Confirmed by MD CIRO, DARCY ([id number]) on 04/10/2017 9:06:51 PM Referred By: Confirmed By:DARCY TANNER MD
== END 2017-04-10 15:15 | disposition home or self-care (01) ==
LOC: JER 15:44 → JERBED 21:18 → J5S 04-10 00:38
PROVIDERS: ADMIT Internal Medicine; ATTEND Nurse Practitioner Family
PROC: 3E0333Z Introduction of Anti-inflammatory into Peripheral Vein, Percutaneous Approach (ICD-10-PCS; principal; 2017-04-09)
PROC: 3E033GC Introduction of Other Therapeutic Substance into Peripheral Vein, Percutaneous Approach (ICD-10-PCS; 2017-04-09)
PROC: 3E0337Z Introduction of Electrolytic and Water Balance Substance into Peripheral Vein, Percutaneous Approach (ICD-10-PCS; 2017-04-09)
DX: K52.89 Other specified noninfective gastroenteritis and colitis (principal)
CPT/HCPCS: 36415; 74177-TC; 76705-TC; 80053; 83690; 85025; 85027; 87804; 93005; 93010; 96361; 96374; 96375; 96376; 99284-25; G0378

== ENCOUNTER 2017-04-10 21:11 | Emergency (ER) | payer OTHER ==
--- NOTE | 2017-04-10 21:27 | PDOC ---
Rapid Medical Evaluation Time Seen by Provider: 04/10/17 21:26 Medical Evaluation: Allergies Allergy/AdvReac Type Severity Reaction Status Date / Time No Known Allergies Allergy Verified 04/09/17 15:49 04/10/17 21:28 42 year old male discharged from hospital this afternoon after short stay for intractable n/v/d. CTAP mild gallbladder wall thickening, ultrasound mild dilation of CBD 5mm. Seen by GI, dx'd with gastroenteritis. Not thought to be cyclic vomiting or related to marijuana use. Has not yet filled prescriptions. Returns complaining of abdominal pain. Actively vomiting. Alert, oriented, in distress secondary to pain. -EKG (HR 47) -Labs including CBC, CMP, lipase, Mg -Zofran 8mg IVPB -IVF -To Main ED for further evaluation
[2017-04-10 21:30] VITALS: BP 154/86; PULSE 47; TEMP 97.6; BMI 32.3
[2017-04-10] MEDS ORDERED: FAMOTIDINE 20 MG/50 ML IVPB 20 MG in PREMIX 50 IVPB ONE (21:33)
[2017-04-10] MEDS ORDERED: ONDANSETRON 4 MG/2 ML VIAL IVPB ONE (21:33)
[2017-04-10] MEDS ORDERED: SODIUM CHLORIDE 1,000 ML IV STA (21:33)
[2017-04-10 21:56] LABS: BASO % 0.9 % (0-2.0); EOS % 0.2 % (0-4.5); HEMATOCRIT 39.3 % (35.4-49); HEMOGLOBIN 13.1 GM/dL (11.7-16.9); LYMPH % 29.4 % (8-40); MCH 28.8 pg (25.7-33.7); MCHC 33.3 g/dl (32.0-35.9); MEAN CELL VOLUME 86.4 fl (80-96); MEAN PLT VOLUME 7.8 fl (7.5-11.1); NEUT % 62.5 % (42.8-82.8); PLATELET COUNT 288 K/MM3 (134-434); RBC 4.55 M/mm3 (4.00-5.60); RDW 13.6 % (11.9-15.9); WHITE BLOOD COUNT 8.2 K/mm3 (4.0-10.0)
[2017-04-10] MEDS ORDERED: ONDANSETRON 4 MG/2 ML VIAL ONE (22:23)
[2017-04-10] MEDS ORDERED: FAMOTIDINE 20 MG/50 ML IVPB 20 MG/50 ML MG IVPB ONE (22:23)
[2017-04-10 22:24] LABS: ALBUMIN 3.6 g/dl (3.4-5.0); ANION GAP 9 (8-16); BILIRUBIN,TOTAL 0.5 mg/dL (0.2-1.0); BLOOD UREA NITROGEN 9 mg/dL (7-18); CALCIUM 8.4 mg/dL (8.5-10.1); CHLORIDE 105 mmol/L (98-107); CO2 26 mmol/L (21-32); CREATININE 1.1 mg/dL (0.7-1.3); GLUCOSE,RANDOM 122 mg/dL (74-106); LIPASE 98 U/L (73-393); POTASSIUM 3.2 mmol/L (3.5-5.1); SGOT/AST 41 U/L (15-37); SGPT/ALT 59 U/L (12-78); SODIUM 140 mmol/L (136-145); TOT PROT 7.5 g/dl (6.4-8.2)
[2017-04-10 22:27] LABS: ALK PHOS 48 U/L (45-117)
[2017-04-10] MEDS ORDERED: POTASSIUM CHLORIDE TABS 20 MEQ TABLET.ER (FP) PO ONE (22:59)
--- NOTE | 2017-04-10 23:31 | PDOC ---
History of Present Illness - General Chief Complaint: Nausea/Vomiting Stated Complaint: STOMACH PAIN Time Seen by Provider: 04/10/17 21:26 - History of Present Illness Initial Comments: 04/10/17 23:29 CHIEF COMPLAINT: Stomach pain HISTORY OF PRESENT ILLNESS: 42 yo M presents with nausea and vomiting x 5 and chills today after being discharged from this emergency department early this morning. Denies chest pain, SOB, and diarrhea. Patient reports frequent marijuana use. No recent travel or sick contacts. PAST MEDICAL HISTORY: Denies past medical history ALLERGIES: No known drug allergies REVIEW OF SYSTEMS General/Constitutional: Reports chills. Denies weakness, weight change. HEENT: Denies change in vision. Denies ear pain or discharge. Denies sore throat. Cardiovascular: Denies chest pain or shortness of breath. Respiratory: Denies cough, wheezing, or hemoptysis. Gastrointestinal: Nausea, 5 episodes of vomiting today. Denies diarrhea or constipation. Denies rectal bleeding. Genitourinary: Denies dysuria, frequency, or change in urination. Neurologic: Denies headache, vertigo, loss of consciousness, or loss of sensation. Psychiatric: Denies depression or anxiety. Hematologic/Lymphatic: Denies anemia, easy bleeding, or history of blood clots. Allergic/Immunologic: Denies hives or skin allergy. Denies latex allergy. PHYSICAL EXAM General Appearance: Writhing and moaning, actively vomiting. Appropriately dressed. HEENT: EOMI, PERRLA, normal voice, No photophobia, scleral icterus. Neck: Supple. Trachea midline. Respiratory/Chest: No shortness of breath, chest tenderness, respiratory distress, accessory muscle use. Cardiovascular: RRR. S1, S2. No JVD, murmur, tachycardia. Gastrointestinal/Abdominal: Superior abdominal tenderness. Abdomen soft, non- distended. No rebound tenderness. No organomegaly, pulsatile mass, guarding, hernia, hepatomegaly, splenomegaly. Musculoskeletal/Extremities: Normal inspection. FROM of all extremities, normal capillary refill. No CVA tenderness. No pedal edema, swelling, erythema or deformity. Integumentary: Appropriate color, dry, warm. No cyanosis, erythema, jaundice or rash Neurologic: Fully oriented, alert. Motor strength 5/5. No appreciable EOM palsy, facial droop or sensory deficit. Past History - Past Medical History Allergies/Adverse Reactions: Allergies Allergy/AdvReac Type Severity Reaction Status Date / Time No Known Allergies Allergy Verified 04/10/17 21:31 Home Medications: Ambulatory Orders Omeprazole 20 mg PO ASDIR 07/16/16 Dicyclomine HCl [Bentyl -] 10 mg PO Q6H #28 capsule 02/27/17 Ondansetron HCl [Zofran] 4 mg PO TID #18 tablet 02/27/17 Ondansetron [Zofran Odt -] 4 mg SL TID #21 od.tablet 04/09/17 Ondansetron [Zofran Odt -] 4 mg SL TID #21 od.tablet 04/09/17 Phenobarb/Hyoscy/Atropine/Scop [ Tablet] 16.2 mg PO TID 3 Days #9 tablet 04/09/17 Phenobarb/Hyoscy/Atropine/Scop [ Tablet] 16.2 mg PO TID 3 Days #9 tablet 04/09/17 Metoclopramide HCl [Reglan -] 10 mg PO TID #30 tablet 04/12/17 COPD: No GI Disorders: Yes (gastritis) - Immunization History Immunization Up to Date: Yes (no flu ) - Suicide/Smoking/Psychosocial Hx Smoking History: Never smoked Have you smoked in the past 12 months: No Number of Cigarettes Smoked Daily: 5 Information on smoking cessation initiated: No 'Breaking Loose' booklet given: 04/10/17 Hx Alcohol Use: No Drug/Substance Use Hx: No Substance Use Type: Alcohol, Marijuana *Physical Exam - Vital Signs Last Vital Signs Temp Pulse Resp BP Pulse Ox 97.6 F 47 L 16 154/86 98 04/10/17 21:27 04/10/17 21:27 04/10/17 21:27 04/10/17 21:27 04/10/17 21:27 ED Treatment Course - LABORATORY CBC & Chemistry Diagram: 04/10/17 21:46 04/10/17 21:46 - ADDITIONAL ORDERS Additional order review: Laboratory Results 04/10/17 04/10/17 21:46 21:46 Sodium 140 Potassium 3.2 L Chloride 105 Carbon Dioxide 26 Anion Gap 9 BUN 9 Creatinine 1.1 Creat Clearance w eGFR > 60 Random Glucose 122 H D Calcium 8.4 L Magnesium 2.1 Total Bilirubin 0.5 AST 41 H D ALT 59 D Alkaline Phosphatase 48 Creatine Kinase 443 H Creatine Kinase Index 0.5 CK-MB (CK-2) 2.614 Troponin I < 0.02 Total Protein 7.5 Albumin 3.6 Lipase 98 04/10/17 21:46 RBC 4.55 MCV 86.4 MCHC 33.3 RDW 13.6 MPV 7.8 Neutrophils % 62.5 D Lymphocytes % 29.4 D Monocytes % 7.0 Eosinophils % 0.2 D Basophils % 0.9 - Medications Given in the ED: ED Medications Discontinued Medications Generic Name Dose Route Start Last Admin Trade Name Freq PRN Reason Stop Dose Admin Famotidine/Sodium Chloride 20 50 mls @ 100 mls/hr 04/10/17 21:33 04/10/17 22: 49 mg/ Miscellaneous IVPB 04/10/17 22:02 100 mls/hr ONCE ONE Administration Sodium Chloride 1,000 mls @ 1,000 mls/hr 04/10/17 21:33 04/10/17 22:49 Normal Saline - IV 04/10/17 22:32 1,000 mls/hr ASDIR STA Administration Ondansetron HCl 8 mg 04/10/17 21:33 04/10/17 22:49 Zofran Injection IVPB 04/10/17 21:34 8 mg ONCE ONE Administration Medical Decision Making - Medical Decision Making 04/11/17 01:14 42M presents with nausea and vomiting x 5 and chills today after being discharged from this emergency department early this morning. -CMP, CBC, trop, lipase -NS bolus 1L -Zofran K+ 3.2 -40 meq K-Dur Patient reassessed, states he is still nauseous and vomiting. -Reglan -Benadryl Patient reassessed . Patient reports relief of symptoms. 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 Patient verbalizes understanding and agreement with plan as outlined above. *DC/Admit/Observation/Transfer Diagnosis at time of Disposition: Nausea & vomiting Intractable vomiting Qualifiers: Vomiting type: unspecified Nausea presence: with nausea Qualified Code(s): R11.2 - Nausea with vomiting, unspecified - Discharge Dispostion Disposition: HOME Condition at time of disposition: Stable Admit: No - Referrals Referrals: Richy Cline [Primary Care Provider] - Werner Singh MD [Staff Physician] - - Patient Instructions Printed Discharge Instructions: DI for Vomiting -- Adult Additional Instructions: Please follow up with Dr. Singh in one week. Please spanish moss picker the prescriptions that were prescribed and take them as directed. Please drink plenty of fluids to stay hydrated. If your symptoms persist despite taking the medications, or you develop fever, chills, or any new or worsening symptoms, please return to the ER. - Post Discharge Activity Forms/Work/School Notes: Back to Work
[2017-04-10] MEDS ORDERED: METOCLOPRAMIDE HCL INJECTION 10 MG/2 ML VIAL IVPUSH ONE (23:58)
[2017-04-11] MEDS ORDERED: METOCLOPRAMIDE HCL INJECTION 10 MG/2 ML VIAL ONE (00:12)
--- NOTE | 2017-04-11 00:14 | PDOC ---
*Physical Exam - Vital Signs Last Vital Signs Temp Pulse Resp BP Pulse Ox 97.6 F 47 L 16 154/86 98 04/10/17 21:27 04/10/17 21:27 04/10/17 21:27 04/10/17 21:27 04/10/17 21:27 ED Treatment Course - LABORATORY CBC & Chemistry Diagram: 04/10/17 21:46 04/10/17 21:46 - ADDITIONAL ORDERS Additional order review: Laboratory Results 04/10/17 04/10/17 21:46 21:46 Sodium 140 Potassium 3.2 L Chloride 105 Carbon Dioxide 26 Anion Gap 9 BUN 9 Creatinine 1.1 Creat Clearance w eGFR > 60 Random Glucose 122 H D Calcium 8.4 L Magnesium 2.1 Total Bilirubin 0.5 AST 41 H D ALT 59 D Alkaline Phosphatase 48 Creatine Kinase 443 H Creatine Kinase Index 0.5 CK-MB (CK-2) 2.614 Troponin I < 0.02 Total Protein 7.5 Albumin 3.6 Lipase 98 04/10/17 21:46 RBC 4.55 MCV 86.4 MCHC 33.3 RDW 13.6 MPV 7.8 Neutrophils % 62.5 D Lymphocytes % 29.4 D Monocytes % 7.0 Eosinophils % 0.2 D Basophils % 0.9 - Medications Given in the ED: ED Medications Discontinued Medications Generic Name Dose Route Start Last Admin Trade Name Freq PRN Reason Stop Dose Admin Famotidine/Sodium Chloride 20 50 mls @ 100 mls/hr 04/10/17 21:33 04/10/17 22: 49 mg/ Miscellaneous IVPB 04/10/17 22:02 100 mls/hr ONCE ONE Administration Sodium Chloride 1,000 mls @ 1,000 mls/hr 04/10/17 21:33 04/10/17 22:49 Normal Saline - IV 04/10/17 22:32 1,000 mls/hr ASDIR STA Administration Ondansetron HCl 8 mg 04/10/17 21:33 04/10/17 22:49 Zofran Injection IVPB 04/10/17 21:34 8 mg ONCE ONE Administration Medical Decision Making - Medical Decision Making 04/11/17 00:14 agree with care from VINOD Mathias *DC/Admit/Observation/Transfer Diagnosis at time of Disposition: Intractable vomiting, Nausea & vomiting - Discharge Dispostion Disposition: HOME Condition at time of disposition: Stable - Referrals Referrals: Werner Singh MD [Staff Physician] - Richy Cline [Primary Care Provider] - - Patient Instructions Printed Discharge Instructions: DI for Vomiting -- Adult Additional Instructions: Please follow up with Dr. Singh in one week. 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 Please drink plenty of fluids to stay hydrated. If your symptoms persist despite taking the medications, or you develop fever, chills, or any new or worsening symptoms, please return to the ER. - Post Discharge Activity Forms/Work/School Notes: Back to Work
[2017-04-11] MEDS ORDERED: POTASSIUM CHLORIDE TABS 10 MEQ TABLET.ER (FP) ONE (00:28)
[2017-04-11] MEDS ORDERED: KCL 10 MEQ IVPB 10 MEQ/100 ML INFUS.BAG IVPB SCH (00:30)
--- NOTE | 2017-04-11 11:19 | EKG ---
Test Reason : Blood Pressure : / mmHG Vent. Rate : 047 BPM Atrial Rate : 047 BPM P-R Int : 140 ms QRS Dur : 108 ms QT Int : 438 ms P-R-T Axes : 064 063 050 degrees QTc Int : 387 ms SINUS BRADYCARDIA NONSPECIFIC T WAVE ABNORMALITY ABNORMAL ECG WHEN COMPARED WITH ECG OF 10-APR-2017 00:11, VENT. RATE HAS DECREASED BY 25 BPM QT HAS SHORTENED Confirmed by JORDANA FOSTER, OBI ([id number]) on 04/11/2017 11:18:45 AM Referred By: Confirmed By:OBI SILVEIRA MD
== END 2017-04-11 02:45 | disposition home or self-care (01) ==
LOC: JER 21:11
PROC: 3E033GC Introduction of Other Therapeutic Substance into Peripheral Vein, Percutaneous Approach (ICD-10-PCS; principal; 2017-04-10)
PROC: 3E0337Z Introduction of Electrolytic and Water Balance Substance into Peripheral Vein, Percutaneous Approach (ICD-10-PCS; 2017-04-10)
DX: R11.2 Nausea with vomiting, unspecified (principal)
CPT/HCPCS: 36415; 80053; 82550; 82553; 83690; 83735; 84484; 85025; 93005; 93010; 96361; 96365; 96367; 96375; 99282-25

== ENCOUNTER 2017-04-11 19:30 | Emergency (ER) | payer OTHER ==
--- NOTE | 2017-04-11 19:46 | PDOC ---
Rapid Medical Evaluation Chief Complaint: Pain Time Seen by Provider: 04/11/17 19:39 Medical Evaluation: Allergies Allergy/AdvReac Type Severity Reaction Status Date / Time No Known Allergies Allergy Verified 04/10/17 21:31 04/11/17 19:45 I have performed a brief in-person evaluation of this patient. The patient presents with a chief complaint of: vomiting, 3rd visit, filled Zofran rx today not helping Pertinent physical exam findings: uncomfortable appearing I have ordered the following: nothing The patient will proceed to the ED for further evaluation. Discharge Disposition - Diagnosis Nausea & vomiting - Referrals - Patient Instructions - Post Discharge Activity
[2017-04-11 19:47] VITALS: BP 148/105; PULSE 46; TEMP 99.1; BMI 32.3
[2017-04-11] MEDS ORDERED: SODIUM CHLORIDE 0.9% 1000 ML INFUS.BAG IV ONE (22:35)
[2017-04-11] MEDS ORDERED: METOCLOPRAMIDE HCL INJECTION 10 MG/2 ML VIAL IVPUSH ONE (22:36)
--- NOTE | 2017-04-11 22:41 | PDOC ---
History of Present Illness - General History Source: Patient Exam Limitations: No Limitations - History of Present Illness Initial Comments: 04/11/17 22:44 The patient is a 42 year old male, with no significant past medical history who smokes marijuana daily, who presents to the emergency department with, diffuse abdominal pain and emesis. The patient was admitted to [facility] for similar symptoms two days ago and was discharged yesterday. He reports the abdominal pain to be constant. He reports 10 episodes of emesis. The patient was prescribed Zofran for his nausea which he did not take until today in the waiting room. As per review of records, patient had a CT scan which depicted nonspecific gallbladder thickening otherwise unremarkable. As per medical records, his symptoms improved and he was discharged. He denies any recent fevers, chills, headache or dizziness. He denies any recent diarrhea or constipation. He denies any recent chest pain or shortness of breath. He denies any recent dysuria, frequency, urgency or hematuria. Allergies: NKA Past surgical history: None reported. Social History: Daily marijuana use. <Najma Raphael - Last Filed: 04/11/17 22:44> - General History Source: Patient Exam Limitations: No Limitations <Monica Stahl - Last Filed: 04/12/17 01:38> - General Chief Complaint: Pain Stated Complaint: PAIN Time Seen by Provider: 04/11/17 19:39 Past History <Najma Raphael - Last Filed: 04/11/17 22:44> - Past Medical History COPD: No GI Disorders: Yes (gastritis) - Immunization History Immunization Up to Date: Yes (no flu ) - Suicide/Smoking/Psychosocial Hx Smoking History: Never smoked Have you smoked in the past 12 months: No Number of Cigarettes Smoked Daily: 5 Information on smoking cessation initiated: No 'Breaking Loose' booklet given: 04/10/17 Hx Alcohol Use: No Drug/Substance Use Hx: Yes Substance Use Type: Alcohol, Marijuana <Monica Stahl - Last Filed: 04/12/17 01:38> - Past Medical History Allergies/Adverse Reactions: Allergies Allergy/AdvReac Type Severity Reaction Status Date / Time No Known Allergies Allergy Verified 04/10/17 21:31 Home Medications: Ambulatory Orders Omeprazole 20 mg PO ASDIR 07/16/16 Dicyclomine HCl [Bentyl -] 10 mg PO Q6H #28 capsule 02/27/17 Ondansetron HCl [Zofran] 4 mg PO TID #18 tablet 02/27/17 Ondansetron [Zofran Odt -] 4 mg SL TID #21 od.tablet 04/09/17 Ondansetron [Zofran Odt -] 4 mg SL TID #21 od.tablet 04/09/17 Phenobarb/Hyoscy/Atropine/Scop [ Tablet] 16.2 mg PO TID 3 Days #9 tablet 04/09/17 Phenobarb/Hyoscy/Atropine/Scop [ Tablet] 16.2 mg PO TID 3 Days #9 tablet 04/09/17 Review of Systems - Review of Systems Able to Perform ROS?: Yes Comments:: 04/11/17 22:44 GENERAL/CONSTITUTIONAL: No fever or chills. No weakness. HEAD, EYES, EARS, NOSE AND THROAT: No change in vision. No ear pain or discharge. No sore throat. CARDIOVASCULAR: No chest pain or shortness of breath. RESPIRATORY: No cough, wheezing, or hemoptysis. GASTROINTESTINAL: +Nausea. +Vomiting. +Abdominal pain. No diarrhea or constipation. GENITOURINARY: No dysuria, frequency, or change in urination. MUSCULOSKELETAL: No joint or muscle swelling or pain. No neck or back pain. SKIN: No rash NEUROLOGIC: No headache, vertigo, loss of consciousness, or change in strength/ sensation. ENDOCRINE: No increased thirst. No abnormal weight change. HEMATOLOGIC/LYMPHATIC: No anemia, easy bleeding, or history of blood clots. ALLERGIC/IMMUNOLOGIC: No hives or skin allergy. All Other Systems: Reviewed and Negative <Najma Raphael - Last Filed: 04/11/17 22:44> *Physical Exam - Vital Signs Last Vital Signs Temp Pulse Resp BP Pulse Ox 99.1 F 46 L 17 148/105 100 04/11/17 19:45 04/11/17 19:45 04/11/17 19:45 04/11/17 19:45 04/11/17 19:45 - Physical Exam Comments: 04/11/17 22:44 GENERAL: Awake, alert, and fully oriented, in no acute distress HEAD: No signs of trauma EYES:+Bilateral conjunctival ejected. PERRLA, EOMI, sclera anicteric ENT: Auricles normal inspection, nares patent. Moist mucosa NECK: Normal ROM, supple, no JVD, or masses LUNGS: Breath sounds equal, clear to auscultation bilaterally. No wheezes, and no crackles HEART: Regular rate and rhythm, normal S1 and S2, no murmurs, rubs or gallops ABDOMEN: +Mild epigastric tenderness. Soft, normoactive bowel sounds. No guarding, no rebound. No masses EXTREMITIES: Normal range of motion, no edema. No clubbing or cyanosis. No cords, erythema, or tenderness NEUROLOGICAL: Alert and oriented x 3. Moves all extremities. Face is symmetric. SKIN: Warm, Dry, normal turgor, no rashes or lesions noted <Najma Raphael - Last Filed: 04/11/17 22:44> - Vital Signs Last Vital Signs Temp Pulse Resp BP Pulse Ox 99.1 F 46 L 17 148/105 100 04/11/17 19:45 04/11/17 19:45 04/11/17 19:45 04/11/17 19:45 04/11/17 19:45 <Monica Stahl - Last Filed: 04/12/17 01:38> ED Treatment Course - LABORATORY CBC & Chemistry Diagram: 04/11/17 23:20 04/11/17 23:20 <Monica Stahl - Last Filed: 04/12/17 01:38> Medical Decision Making - Medical Decision Making 04/11/17 22:38 42-year-old male with history of daily weed use here today after being admitted and discharged from the hospital yesterday for 24 hours for intractable nausea vomiting again complaining of epigastric pain and vomiting. Patient was discharged yesterday with a prescription for Zofran. States he took the medicine just before coming to the hospital today the ED and says may have helped him slightly. He does report daily weed use. Epigastric pain is burning in nature no fevers no chills no diarrhea no sick contacts says he threw up 10 times today has tolerated some ice chips since Zofran. No previous abdominal surgeries no radiation to his pain pain is constant On exam he is awake alert no acute distress noted to have bilateral scleral conjunctival injection. Lungs are clear bilaterally. Heart is regular without any murmurs rubs or gallops. Abdomen is noted for mild epigastric tenderness no rebound no guarding skin is warm and dry extremity normal perfused neuro patient is sleeping but arousable moves all 4 extremities Differential includes pancreatitis, gastritis, dehydration, side effect of daily weed use, biliary dysfunction. Plan to repeat a CMP CBC and lipase IV hydration and trial by mouth patient is tolerating by mouth we'll recommend follow-up with [facility] and DC home with nadine Manning which he already has <Monica Stahl - Last Filed: 04/12/17 01:38> *DC/Admit/Observation/Transfer - Attestations Scribe Attestion: 04/11/17 22:45 Documentation prepared by Najma Raphael, acting as medical doctor for Monica Stahl MD. <Najma Raphael - Last Filed: 04/11/17 22:44> - Discharge Dispostion Admit: No <Monica Stahl - Last Filed: 04/12/17 01:38> Diagnosis at time of Disposition: Nausea & vomiting - Referrals Referrals: Werner Singh MD [Staff Physician] - - Patient Instructions Printed Discharge Instructions: DI for Vomiting -- Adult Additional Instructions: you need to stop using weed daily as it can lead to continuous vomiting. take the zofran you were prescribed for nausea every 4 hour as needed., follow up with underwriting manager dr. singh. return for any problems or concerns.
[2017-04-11] MEDS ORDERED: METOCLOPRAMIDE HCL INJECTION 10 MG/2 ML VIAL ONE (22:55)
[2017-04-12 00:05] LABS: BASO % 0.6 % (0-2.0); MEAN CELL VOLUME 87.9 fl (80-96); MEAN PLT VOLUME 8.1 fl (7.5-11.1); NEUT % 79.7 % (42.8-82.8); PLATELET COUNT 271 K/MM3 (134-434); WHITE BLOOD COUNT 7.6 K/mm3 (4.0-10.0)
[2017-04-12 02:45] LABS: ALBUMIN 3.8 g/dl (3.4-5.0); ANION GAP 9 (8-16); BILIRUBIN,TOTAL 0.5 mg/dL (0.2-1.0); CALCIUM 8.7 mg/dL (8.5-10.1); CO2 28 mmol/L (21-32); GLUCOSE,RANDOM 104 mg/dL (74-106); SGOT/AST 33 U/L (15-37); SGPT/ALT 62 U/L (12-78); TOT PROT 7.4 g/dl (6.4-8.2)
[2017-04-12 02:46] LABS: ALK PHOS 44 U/L (45-117)
--- NOTE | 2017-04-12 03:06 | PDOC ---
*Physical Exam - Vital Signs Last Vital Signs Temp Pulse Resp BP Pulse Ox 99.1 F 46 L 17 148/105 100 04/11/17 19:45 04/11/17 19:45 04/11/17 19:45 04/11/17 19:45 04/11/17 19:45 ED Treatment Course - LABORATORY CBC & Chemistry Diagram: 04/11/17 23:20 04/12/17 01:26 - ADDITIONAL ORDERS Additional order review: Laboratory Results 04/12/17 04/12/17 04/11/17 01:26 01:26 23:20 Sodium 138 Potassium 3.7 Chloride 101 Carbon Dioxide 28 Anion Gap 9 BUN 9 Creatinine 1.0 Creat Clearance w eGFR > 60 Random Glucose 104 Calcium 8.7 Total Bilirubin 0.5 AST 33 ALT 62 Alkaline Phosphatase 44 L Total Protein 7.4 Albumin 3.8 Lipase 95 Cancelled 04/11/17 23:20 Sodium Cancelled Potassium Cancelled Chloride Cancelled Carbon Dioxide Cancelled Anion Gap Cancelled BUN Cancelled Creatinine Cancelled Creat Clearance w eGFR Cancelled Random Glucose Cancelled Calcium Cancelled Total Bilirubin Cancelled AST Cancelled ALT Cancelled Alkaline Phosphatase Cancelled Total Protein Cancelled Albumin Cancelled Lipase 04/11/17 23:20 RBC 4.70 MCV 87.9 MCHC 33.0 RDW 14.0 MPV 8.1 Neutrophils % 79.7 D Lymphocytes % 15.9 D Monocytes % 3.8 Eosinophils % 0.0 D Basophils % 0.6 - Medications Given in the ED: ED Medications Discontinued Medications Generic Name Dose Route Start Last Admin Trade Name Brooksq PRN Reason Stop Dose Admin Metoclopramide HCl 10 mg 04/11/17 22:36 04/11/17 22:55 Reglan Injection - IVPUSH 04/11/17 22:37 10 mg ONCE ONE Administration Sodium Chloride 1,000 ml 04/11/17 22:35 04/11/17 22:54 Normal Saline - IV 04/11/17 22:36 1,000 ml ONCE ONE Administration *DC/Admit/Observation/Transfer Diagnosis at time of Disposition: Nausea & vomiting - Discharge Dispostion Disposition: HOME Condition at time of disposition: Stable Admit: No - Referrals Referrals: Werner Singh MD [Staff Physician] - - Patient Instructions Printed Discharge Instructions: DI for Vomiting -- Adult Additional Instructions: you need to stop using weed daily as it can lead to continuous vomiting. take the zofran you were prescribed for nausea every 4 hour as needed., follow up with center specialists dr. singh. return for any problems or concerns. - Post Discharge Activity
--- NOTE | 2017-04-12 16:30 | EKG ---
Test Reason : Blood Pressure : / mmHG Vent. Rate : 045 BPM Atrial Rate : 045 BPM P-R Int : 130 ms QRS Dur : 108 ms QT Int : 430 ms P-R-T Axes : 066 068 038 degrees QTc Int : 371 ms SINUS BRADYCARDIA MINIMAL VOLTAGE CRITERIA FOR LVH, MAY BE NORMAL VARIANT BORDERLINE ECG WHEN COMPARED WITH ECG OF 10-APR-2017 21:37, NO SIGNIFICANT CHANGE WAS FOUND Confirmed by HAILE FOSTER, KIMBERLY ([id number]) on 04/12/2017 4:29:54 PM Referred By: Confirmed By:KIMBERLY BE MD
== END 2017-04-12 03:09 | disposition home or self-care (01) ==
LOC: JER 19:30
PROC: 3E0337Z Introduction of Electrolytic and Water Balance Substance into Peripheral Vein, Percutaneous Approach (ICD-10-PCS; principal; 2017-04-11)
PROC: 3E033GC Introduction of Other Therapeutic Substance into Peripheral Vein, Percutaneous Approach (ICD-10-PCS; 2017-04-11)
DX: R11.2 Nausea with vomiting, unspecified (principal); F12.90 Cannabis use, unspecified, uncomplicated; K29.70 Gastritis, unspecified, without bleeding
CPT/HCPCS: 36415; 80053; 83690; 85025; 93005; 93010; 99282-25

== ENCOUNTER 2018-06-18 06:36 | Emergency (ER) | payer OTHER ==
[2018-06-18 07:22] VITALS: BP 138/80; TEMP 98.8; BMI 32.3
--- NOTE | 2018-06-18 07:56 | PDOC ---
History of Present Illness - General Stated Complaint: ABD PAIN Time Seen by Provider: 06/18/18 07:35 - History of Present Illness Initial Comments: 06/18/18 07:53 43 yo M with h/o GERD who p/w diffuse abdominal pain. Patient reports acute onset of non bilious, non bloody emesis x 3/day beginning 06/15/18. Reports 3 loos, non watery, non mucoid or bloody stools stools Sunday, which is now resolved. Endorses diffuse crampy abdominal pain x 3 days, which is intermittent , with no identifiable triggers/alleviators. + decreased PO intake and appetite. Similiar symptoms x 1 year ago, diagnosed with gastroenteritis. Denies abdominal trauma. Patient denies NIÑO, vision change, palpitations, cough, wheezing, F,C, CP, SOB, urinary complaints, diarrhea, constipation, hematuria, BPR, lightheadedness, weakness, sensory changes. PMHx: as noted above. Denies h/o endioscopy, colonsocpy. does not f/w GI. Denies chronic NSAID use. Surgical: denies h/o abdominal surgery ROS: as noted SHx: Daily marijuanna use. Denies Etoh, IVDA, tobacco use. No recent sick contacts or travels. No recent change in diet. Allergies: NKDA Past History - Past Medical History Allergies/Adverse Reactions: Allergies Allergy/AdvReac Type Severity Reaction Status Date / Time No Known Allergies Allergy Verified 04/10/17 21:31 Home Medications: Ambulatory Orders Omeprazole 20 mg PO ASDIR 07/16/16 Dicyclomine HCl [Bentyl -] 10 mg PO Q6H #28 capsule 02/27/17 Ondansetron [Zofran Odt -] 4 mg SL TID #21 od.tablet 04/09/17 Phenobarb/Hyoscy/Atropine/Scop [ Tablet] 16.2 mg PO TID 3 Days #9 tablet 04/09/17 Metoclopramide HCl [Reglan -] 10 mg PO TID #30 tablet 04/12/17 Metoclopramide HCl [Reglan -] 10 mg PO DAILY #7 tablet 06/18/18 COPD: No GI Disorders: Yes (gastritis) - Immunization History Immunization Up to Date: Yes (no flu ) - Suicide/Smoking/Psychosocial Hx Smoking History: Current every day smoker Have you smoked in the past 12 months: No Number of Cigarettes Smoked Daily: 5 Information on smoking cessation initiated: No 'Breaking Loose' booklet given: 04/10/17 Hx Alcohol Use: No Drug/Substance Use Hx: Yes (Gisela) Substance Use Type: Alcohol, Marijuana Review of Systems - Review of Systems Comments:: 06/18/18 07:55 GENERAL/CONSTITUTIONAL: No fever or chills. No weakness. HEAD, EYES, EARS, NOSE AND THROAT: No change in vision. No ear pain or discharge. No sore throat. CARDIOVASCULAR: No chest pain or shortness of breath RESPIRATORY: No cough, wheezing, or hemoptysis. GASTROINTESTINAL: + Abdominal pain, nausea, vomiting. No diarrhea or constipation. GENITOURINARY: No dysuria, frequency, or change in urination. MUSCULOSKELETAL: No joint or muscle swelling or pain. No neck or back pain. SKIN: No rash NEUROLOGIC: No headache, vertigo, loss of consciousness, or change in strength/ sensation. ENDOCRINE: No increased thirst. No abnormal weight change HEMATOLOGIC/LYMPHATIC: No anemia, easy bleeding, or history of blood clots. ALLERGIC/IMMUNOLOGIC: No hives or skin allergy. = *Physical Exam - Vital Signs Last Vital Signs Temp Pulse Resp BP Pulse Ox 98.8 F 64 20 138/80 99 06/18/18 07:19 06/18/18 07:19 06/18/18 07:19 06/18/18 07:19 06/18/18 07:19 - Physical Exam Comments: 06/18/18 07:56 GENERAL: Awake, alert, and fully oriented, in no acute distress HEAD: No signs of trauma, normocephalic, atraumatic EYES: PERRLA, EOMI, sclera anicteric, conjunctiva clear ENT: + Dry mucous membranes. Hearing grossly normal, nares patent, oropharynx clear without exudates. NECK: Normal ROM, supple, no lymphadenopathy, JVD, or masses LUNGS: No distress, speaks full sentences, clear to auscultation bilaterally HEART: Regular rate and rhythm, normal S1 and S2, no murmurs, rubs or gallops, peripheral pulses normal and equal bilaterally. ABDOMEN: Soft, diffuse ttp, NDS normoactive bowel sounds. No guarding, no rebound. No masses. Neg CVA ttp. EXTREMITIES : Normal inspection, Normal range of motion, no edema. No clubbing or cyanosis. NEUROLOGICAL: Cranial nerves II through XII grossly intact. Normal speech, normal gait, no focal sensorimotor deficits SKIN: Warm, Dry, normal turgor, no rashes or lesions noted Moderate Sedation - Procedure Monitoring Vital Signs: Procedure Monitoring Vital Signs Temperature 98.8 F 06/18/18 07:19 Pulse Rate 64 06/18/18 07:19 Respiratory Rate 20 06/18/18 07:19 Blood Pressure 138/80 06/18/18 07:19 O2 Sat by Pulse Oximetry (%) 99 06/18/18 07:19 ED Treatment Course - LABORATORY CBC & Chemistry Diagram: 06/18/18 08:00 06/18/18 08:00 Medical Decision Making - Medical Decision Making 06/18/18 07:54 43 yo M with h/o GERD who p/w diffuse, crampy abdominal pain, and vomiting. Vitals wnl, AF, A&Ox3. Physical exam notable for dry mucous membranes and diffuse abdominal ttp. Will consider colitis, gastroenteritis, cannibinoid hyperemesis syndrome, biliary dz., pancreattitis, nephrolithias. Low suspicion testicular pathology, pyelonpehtiris, AAA, Ao dissection. will provide adequate IV fluid resuscitation, antiemetic and pain control, reassess. ED Course: 06/18/18 10:25 Zofran, NS CBC,CMP: Unremarkable BUN/Cr: /.4 Reglan, Ativan for continued symptoms 06/18/18 11:28 Abdominal pain, resolved . Patient stable for d/c with return precautions. Tolerating PO intake. Reglan sent to pharmacy Advised to f/u with GI *DC/Admit/Observation/Transfer Diagnosis at time of Disposition: Gastroenteritis - Discharge Dispostion Disposition: HOME Condition at time of disposition: Stable - Prescriptions Prescriptions: Metoclopramide HCl [Reglan -] 10 mg PO DAILY #7 tablet - Referrals Referrals: Werner Singh MD [Staff Physician] - Richy Cline [Primary Care Provider] - Gen Hicks DO [Staff Physician] - - Patient Instructions Printed Discharge Instructions: DI for Abdominal Pain-Adult, DI for Gastroparesis Additional Instructions: Please return to the emergency department with any new or worsening symptoms or concerns. Please follow up with your primary care physician within 72 hours.Please follow up with gastroenterology within one week. - Post Discharge Activity Forms/Work/School Notes: Back to Work - Attestations Physician Attestion: 06/18/18 07:55 I attest to the information provided in this note.
[2018-06-18 08:02] VITALS: PULSE 84
[2018-06-18 08:23] LABS: BASO % 0.7 % (0-2.0); EOS % 0.7 % (0-4.5); HEMATOCRIT 48.1 % (35.4-49); HEMOGLOBIN 16.8 GM/dL (11.7-16.9); LYMPH % 27.5 % (8-40); MCH 30.6 pg (25.7-33.7); MCHC 34.8 g/dl (32.0-35.9); MEAN CELL VOLUME 87.8 fl (80-96); MEAN PLT VOLUME 7.3 fl (7.5-11.1); MONO % 7.6 % (3.8-10.2); NEUT % 63.5 % (42.8-82.8); PLATELET COUNT 361 K/MM3 (134-434); RBC 5.48 M/mm3 (4.00-5.60); RDW 13.5 % (11.9-15.9); WHITE BLOOD COUNT 9.1 K/mm3 (4.0-10.0)
[2018-06-18] MEDS ORDERED: ONDANSETRON 4 MG/2 ML VIAL IVPUSH ONE (08:24)
[2018-06-18] MEDS ORDERED: FAMOTIDINE 20 MG/50 ML IVPB 20 MG/50 ML MG IVPB ONE ×2 (08:24→08:29)
[2018-06-18] MEDS ORDERED: SODIUM CHLORIDE 1,000 ML IV STA (08:24)
[2018-06-18] MEDS ORDERED: ACETAMINOPHEN 1000 MG/100 ML VIAL (NON FORMULARY) IVPB ONE (08:24)
[2018-06-18] MEDS ORDERED: ACETAMINOPHEN INJECTION 100 ML IVPB ONE (08:29)
[2018-06-18] MEDS ORDERED: ONDANSETRON 4 MG/2 ML VIAL ONE (08:29)
[2018-06-18 08:53] LABS: ALBUMIN 4.1 g/dl (3.4-5.0); ALK PHOS 48 U/L (45-117); ANION GAP 10 MMOL/L (8-16); BILIRUBIN,TOTAL 0.9 mg/dL (0.2-1); BLOOD UREA NITROGEN 19 mg/dL (7-18); CALCIUM 9.8 mg/dL (8.5-10.1); CHLORIDE 98 mmol/L (98-107); CO2 27 mmol/L (21-32); CREATININE 1.4 mg/dL (0.55-1.3); GLUCOSE,RANDOM 104 mg/dL (74-106); LIPASE 87 U/L (73-393); SGOT/AST 34 U/L (15-37); SGPT/ALT 41 U/L (13-61); SODIUM 135 mmol/L (136-145); TOT PROT 8.7 g/dl (6.4-8.2)
[2018-06-18] MEDS ORDERED: METOCLOPRAMIDE HCL INJECTION 10 MG/2 ML VIAL IVPB ONE (09:44)
[2018-06-18] MEDS ORDERED: METOCLOPRAMIDE HCL INJECTION 10 MG/2 ML VIAL ONE (09:52)
[2018-06-18] MEDS ORDERED: LORazepam 2 MG/ML SDV VIAL ONE (09:53)
--- NOTE | 2018-06-18 10:26 | PDOC ---
Attending Attestation - Resident Resident Name: Zaid Garcia - ED Attending Attestation I have performed the following: I have examined & evaluated the patient, The case was reviewed & discussed with the resident, I agree w/resident's findings & plan - HPI HPI: 06/18/18 10:21 43-year-old male with intermittent abdominal pain/nausea/vomiting for 3-4 days. Patient reports episodic abdominal pain that is diffuse, sharp in nature, and lasts several minutes. Relieved somewhat by vomiting, which is nonbloody and nonbilious. Had 1 episode of diarrhea 3 days ago, otherwise normal stool since then. Denies excessive NSAID or alcohol use, but admits to daily marijuana use. Has had 2-3 visits per year to the emergency room for GI complaints in the past , unclear diagnosis. Recalls being prescribed Zofran without relief, never had GI evaluation or endoscopy. - Physicial Exam PE: 06/18/18 10:23 Vital signs are normal Generally well-appearing and ambulating Dry mucosa, no jaundice or pallor Heart is regular, lungs are clear Abdomen is soft/nondistended, epigastric discomfort to palpation without guarding or rebound. No CVA tenderness Neurologically intact - Medical Decision Making 06/18/18 10:24 43-year-old male with history of daily marijuana use presents with episodic abdominal pain/nausea/vomiting for 3-4 days, normal vital signs and no focal peritoneal findings on examination. Presentation seems most consistent with possible gastritis, possible gastroparesis from cannabinoid use, rule out biliary or pancreatic etiology. No evidence for cardiopulmonary etiology. Labs, EKG IV fluids, antiemetic, antispasmodic Reassess
== END 2018-06-18 11:47 | disposition home or self-care (01) ==
LOC: JER 06:36
PROC: 3E033GC Introduction of Other Therapeutic Substance into Peripheral Vein, Percutaneous Approach (ICD-10-PCS; principal; 2018-06-18)
PROC: 3E033GC Introduction of Other Therapeutic Substance into Peripheral Vein, Percutaneous Approach (ICD-10-PCS; 2018-06-18)
PROC: 3E033GC Introduction of Other Therapeutic Substance into Peripheral Vein, Percutaneous Approach (ICD-10-PCS; 2018-06-18)
PROC: 3E033NZ Introduction of Analgesics, Hypnotics, Sedatives into Peripheral Vein, Percutaneous Approach (ICD-10-PCS; 2018-06-18)
PROC: 3E033NZ Introduction of Analgesics, Hypnotics, Sedatives into Peripheral Vein, Percutaneous Approach (ICD-10-PCS; 2018-06-18)
DX: K52.9 Noninfective gastroenteritis and colitis, unspecified (principal)
CPT/HCPCS: 36415; 74177-TC; 80053; 83690; 85025; 96365; 96375; 99283-25; J0131; J7030

== ENCOUNTER 2018-10-28 11:59 | Emergency (ER) | payer OTHER ==
[2018-10-28 12:05] VITALS: TEMP 97.8; BMI 32.3
--- NOTE | 2018-10-28 12:59 | PDOC ---
History of Present Illness - General Chief Complaint: Pain Stated Complaint: ABD PAIN/ VOMITING Time Seen by Provider: 10/28/18 12:58 - History of Present Illness Initial Comments: 43yo M who denies PMH presenting with diffuse "crampy" abdominal pain that started this morning. The pain is rated 8/10, described as "pressure", and constant with intermittent worsening. Nothing makes it better or worse. Multiple bilious watery vomiting since this morning, too numerous to count. Has not been able to tolerate po intake. One episode of diarrhea today that he describes as "black." Denies eating anything unusual. No sick contacts or recent travel. No history of abdominal surgeries. Never seen a GI doctor. Never had a colonoscopy or endoscopy. Denies urinary symptoms. Smokes up to four joints of marijuana per day. No fever or chills. PCP: Dr. Cline Past History - Past Medical History Allergies/Adverse Reactions: Allergies Allergy/AdvReac Type Severity Reaction Status Date / Time No Known Allergies Allergy Verified 10/28/18 12:05 Home Medications: Ambulatory Orders Omeprazole 20 mg PO ASDIR 07/16/16 Dicyclomine HCl [Bentyl -] 10 mg PO Q6H #28 capsule 02/27/17 Ondansetron [Zofran Odt -] 4 mg SL TID #21 od.tablet 04/09/17 Phenobarb/Hyoscy/Atropine/Scop [ Tablet] 16.2 mg PO TID 3 Days #9 tablet 04/09/17 Metoclopramide HCl [Reglan -] 10 mg PO TID #30 tablet 04/12/17 Metoclopramide HCl [Reglan -] 10 mg PO DAILY #7 tablet 06/18/18 COPD: No GI Disorders: Yes (gastritis) - Surgical History GI Surgery: No - Immunization History Immunization Up to Date: Yes (no flu ) - Suicide/Smoking/Psychosocial Hx Smoking History: Never smoked Have you smoked in the past 12 months: No Number of Cigarettes Smoked Daily: 5 Information on smoking cessation initiated: No 'Breaking Loose' booklet given: 04/10/17 Hx Alcohol Use: No Drug/Substance Use Hx: No Substance Use Type: Alcohol, Marijuana Review of Systems - Review of Systems Comments:: Constitutional: no fever, no chills HEENT: no throat pain, no dysphagia Cardiovascular: no chest pain, no palpitations Respiratory: no cough, no shortness of breath Gastrointestinal: +abdominal pain, +vomiting, +diarrhea Genitourinary: no dysuria, no frequency Musculoskeletal: no myalgia, no arthralgia Skin: no rash, no itching Neurologic: +headache, no weakness *Physical Exam - Vital Signs Last Vital Signs Temp Pulse Resp BP Pulse Ox 97.8 F 80 17 136/80 100 10/28/18 12:02 10/28/18 12:02 10/28/18 12:02 10/28/18 12:02 10/28/18 12:02 - Physical Exam Comments: General: Awake, alert, and fully oriented, in no acute distress Head: No signs of trauma Eyes: EOMI, sclera anicteric ENT: Dry mucus membranes Neck: Normal ROM, supple Lungs: Lungs clear, Normal breath sounds Cardio: Regular rhythm, S1 and S2 present Abdomen: Soft, nondistended. Patient indicates that he has pain in all four quadrants but without worsening tenderness upon palpation. No guarding, no rebound, no masses. No CVA tenderness. Extremities: Normal range of motion, Distal pulses present SKIN: Warm, Dry, normal turgor Neurologic: Cranial nerves II through XII grossly intact. Normal speech ED Treatment Course - LABORATORY CBC & Chemistry Diagram: 10/28/18 14:02 10/28/18 14:02 Medical Decision Making - Medical Decision Making 43yo M who denies PMH presenting with diffuse "crampy" abdominal pain that started this morning. Per chart review was here on 06/18/18 with similar complaint DDX including but not limited gastroenteritis, gastritis, pancreatitis, ACS, diverticulitis, nephrolithiasis, UTI Will defer imaging at this time as patient's presentation is consistent with acute gastroenteritis. Labs, EKG Fluids, Famotidine, Reglan 10/28/18 12:59 CBC WBC 11.1 K/mm3 (4.0-10.0) H 10/28/18 14:02 RBC 4.72 M/mm3 (4.00-5.60) 10/28/18 14:02 Hgb 13.9 GM/dL (11.7-16.9) 10/28/18 14:02 Hct 41.7 % (35.4-49) 10/28/18 14:02 MCV 88.3 fl (80-96) 10/28/18 14:02 MCH 29.5 pg (25.7-33.7) 10/28/18 14:02 MCHC 33.4 g/dl (32.0-35.9) 10/28/18 14:02 RDW 14.1 % (11.9-15.9) 10/28/18 14:02 Plt Count 336 K/MM3 (134-434) 10/28/18 14:02 MPV 7.7 fl (7.5-11.1) 10/28/18 14:02 Absolute Neuts (auto) 10.0 K/mm3 (1.5-8.0) H 10/28/18 14:02 Neutrophils % 90.3 % (42.8-82.8) H 10/28/18 14:02 Lymphocytes % 6.3 % (8-40) L D 10/28/18 14:02 Monocytes % 3.1 % (3.8-10.2) L 10/28/18 14:02 Eosinophils % 0.0 % (0-4.5) D 10/28/18 14:02 Basophils % 0.3 % (0-2.0) 10/28/18 14:02 Nucleated RBC % 0 % (0-0) 10/28/18 14:02 Mild leukocytosis No anemia CMP Sodium 141 mmol/L (136-145) 10/28/18 14:02 Potassium 4.2 mmol/L (3.5-5.1) 10/28/18 14:02 Chloride 106 mmol/L (98-107) 10/28/18 14:02 Carbon Dioxide 25 mmol/L (21-32) 10/28/18 14:02 Anion Gap 10 MMOL/L (8-16) 10/28/18 14:02 BUN 11.9 mg/dL (7-18) 10/28/18 14:02 Creatinine 1.3 mg/dL (0.55-1.3) 10/28/18 14:02 Est GFR (CKD-EPI)AfAm 77.45 10/28/18 14:02 Est GFR (CKD-EPI)NonAf 66.83 10/28/18 14:02 Random Glucose 128 mg/dL (74-106) H 10/28/18 14:02 Calcium 9.8 mg/dL (8.5-10.1) 10/28/18 14:02 Total Bilirubin 0.4 mg/dL (0.2-1) 10/28/18 14:02 AST 20 U/L (15-37) 10/28/18 14:02 ALT 31 U/L (13-61) 10/28/18 14:02 Alkaline Phosphatase 46 U/L (45-117) 10/28/18 14:02 Total Protein 8.1 g/dl (6.4-8.2) 10/28/18 14:02 Albumin 4.1 g/dl (3.4-5.0) 10/28/18 14:02 Lipase 59 U/L (73-393) L 10/28/18 14:02 Electrolytes unremarkable EK, QTc 404, NSR with sinus arrhythmia Patient feeling better after receiving fluids and reglan States no longer nauseous Passed po challenge Plan to discharge with GI follow-up *DC/Admit/Observation/Transfer Diagnosis at time of Disposition: Gastroenteritis - Discharge Dispostion Disposition: HOME Condition at time of disposition: Stable - Referrals Referrals: Richy Cline [Primary Care Provider] - Sheldon Houston MD [Staff Physician] - - Patient Instructions Printed Discharge Instructions: DI for Abdominal Pain-Adult Additional Instructions: You came into the ED for abdominal pain. You had no concerning abnormalities. We gave you fluids and anti-nausea medicine which improved your symptoms. Your nausea, vomiting, and abdominal pain may be worsened by marijuana use. Stop using marijuana to help improve your symptoms. We have referred you to a GI specialist. Also follow-up with a primary care provider this week to discuss this ED visit and to further evaluate your symptoms. Call today and make appointment at the numbers provided. Your workup is not completed until you do so. Immediate medical attention is required if you have: worsening pain, high fevers , persistent nausea, vomiting, or any new or concerning symptoms. If you think you are having an emergency, call for emergency medical services or present to the emergency department right away. - Post Discharge Activity Forms/Work/School Notes: Back to Work
[2018-10-28] MEDS ORDERED: SODIUM CHLORIDE 1,000 ML IV STA (13:17)
[2018-10-28] MEDS ORDERED: METOCLOPRAMIDE HCL INJECTION 10 MG/2 ML VIAL IVPUSH ONE (13:17)
[2018-10-28] MEDS ORDERED: FAMOTIDINE 20 MG/50 ML IVPB 20 MG/50 ML MG IVPB ONE ×2 (13:17→14:32)
--- NOTE | 2018-10-28 14:31 | PDOC ---
Documentation entered by Madelaine Colunga SCRIBE, acting as scribe for Jimmy Hernandez MD. Jimmy Hernandez MD: This documentation has been prepared by the scribe, Madelaine Colunga SCRIBE, under my direction and personally reviewed by me in its entirety. I confirm that the documentation accurately reflects all work, treatment, procedures, and medical decision making performed by me. Attending Attestation - Resident Resident Name: RoxyVeronicaPat - ED Attending Attestation I have performed the following: I have examined & evaluated the patient, The case was reviewed & discussed with the resident, I agree w/resident's findings & plan, Exceptions are as noted - HPI HPI: 10/28/18 14:26 43y M presents with diffuse abd pain starting last night and non bloody vomiting this morning. Pt denies any fever/chills, cp, sob, hooper, back pain, numnbess/tngling/weakness. Pt notes the pain is intermittent worse in epigastrium/upper abd and is pressure like in nature. he has had this in the past and came to the ED for evaluation with improvement/resolution of symptoms until last night. denies any leg swelling, cough, hemopotysis, duysuria, blood per rectum notes he smokes marijuana daily denies etoh abuse, other ivdu or recreational drug use GENERAL: The patient is awake, alert, and fully oriented, Nontoxic - in no acute distress. HEAD: Normocephalic, atraumatic. EYES: extraocular movements intact, sclera anicteric, conjunctiva clear. ENT: Normal voice, Moist mucous membranes. NECK: Normal range of motion, supple LUNGS: Breath sounds equal, clear to auscultation bilaterally. No wheezes, no rhonchi, no rales. HEART: Regular rate and rhythm, normal S1 and S2 without murmur, rub or gallop. ABDOMEN: Soft, mild diffuse abd ttp without guarding or rebound, no cva tenderness EXTREMITIES: Normal range of motion, no edema. NEUROLOGICAL: No facial assymetry, Normal speech, PSYCH: Normal mood, normal affect. SKIN: Warm, Dry, normal turgor, differential includes pancreaitits, gastritis, consider possibel cannibnoid hyperemesis pepcid will ck labs fluids for hydration elpidio lreassess 10/28/18 15:33 - Physicial Exam PE: 10/28/18 14:30 ee above - Medical Decision Making 10/28/18 15:42 labs reviewed noted for very mild leukoctysosis n/v resolved abd reasessement is soft nontneder will PO challenge - if tolerating oral intake will dc with pmd fu Heart Score/ECG Review - ECG Impressions Comment:: 10/28/18 15:43 Twelve-lead EKG was performed and reviewed by me. There is normal sinus rhythm with a normal rate. rate of [address] changes suggestive of acute ischemia
[2018-10-28] MEDS ORDERED: METOCLOPRAMIDE HCL INJECTION 10 MG/2 ML VIAL ONE (14:32)
[2018-10-28 14:49] LABS: BASO % 0.3 % (0-2.0); HEMATOCRIT 41.7 % (35.4-49); HEMOGLOBIN 13.9 GM/dL (11.7-16.9); LYMPH % 6.3 % (8-40); MCH 29.5 pg (25.7-33.7); MCHC 33.4 g/dl (32.0-35.9); MEAN CELL VOLUME 88.3 fl (80-96); MEAN PLT VOLUME 7.7 fl (7.5-11.1); MONO % 3.1 % (3.8-10.2); NEUT % 90.3 % (42.8-82.8); PLATELET COUNT 336 K/MM3 (134-434); RBC 4.72 M/mm3 (4.00-5.60); RDW 14.1 % (11.9-15.9); WHITE BLOOD COUNT 11.1 K/mm3 (4.0-10.0)
[2018-10-28 14:59] LABS: ALBUMIN 4.1 g/dl (3.4-5.0); BILIRUBIN,TOTAL 0.4 mg/dL (0.2-1); BLOOD UREA NITROGEN 11.9 mg/dL (7-18); CALCIUM 9.8 mg/dL (8.5-10.1); CREATININE 1.3 mg/dL (0.55-1.3); POTASSIUM 4.2 mmol/L (3.5-5.1); TOT PROT 8.1 g/dl (6.4-8.2)
[2018-10-28 16:30] VITALS: BP 137/83; PULSE 66
--- NOTE | 2018-10-29 12:07 | EKG ---
Test Reason : Blood Pressure : / mmHG Vent. Rate : 068 BPM Atrial Rate : 068 BPM P-R Int : 144 ms QRS Dur : 102 ms QT Int : 380 ms P-R-T Axes : 072 061 036 degrees QTc Int : 404 ms NORMAL SINUS RHYTHM WITH SINUS ARRHYTHMIA NORMAL ECG WHEN COMPARED WITH ECG OF 11-APR-2017 19:58, VENT. RATE HAS INCREASED BY 23 BPM Confirmed by Martir Naylor ([id number]) on 10/29/2018 12:07:14 PM Referred By: Confirmed By:Martir Naylor
== END 2018-10-28 16:35 | disposition home or self-care (01) ==
LOC: JER 11:59
PROC: 3E0337Z Introduction of Electrolytic and Water Balance Substance into Peripheral Vein, Percutaneous Approach (ICD-10-PCS; principal; 2018-10-28)
PROC: 3E033GC Introduction of Other Therapeutic Substance into Peripheral Vein, Percutaneous Approach (ICD-10-PCS; 2018-10-28)
PROC: 3E033GC Introduction of Other Therapeutic Substance into Peripheral Vein, Percutaneous Approach (ICD-10-PCS; 2018-10-28)
DX: K52.9 Noninfective gastroenteritis and colitis, unspecified (principal)
CPT/HCPCS: 36415; 80053; 82272; 83690; 85025; 93005; 93010; 96361; 96365; 96375; 99282-25; J7030